=== PATIENT | male | born 1975 | race Hispanic/Latino ===

== ENCOUNTER 2017-03-15 15:39 | Emergency (ER) | payer MEDICAID ==
[~2017-03-15] VITALS: Ht 160 cm; Wt 92.5 kg
[~2017-03-15 15:39] MED LIST: CEFP500T4 PO
--- OUTSIDE RECORDS SUMMARY | 2017-03-15 15:44 | XMS REPORT ---
Author Author KEVIN MCCRARY Organization [facility] Address [address] [place] [address] Care Team Providers Care Dial Polisher Name Role Phone KEVIN MCCRARY Unavailable PROBLEMS Type Condition ICD9-CM Code [id number] Code Onset Dates Condition Status SNOMED Code Problem Type 2 diabetes mellitus without complication, without long-term current use of insulin E11.9 Active 692036760 Problem Mixed hyperlipidemia E78.2 Active 477092992 Problem Chest pain, unspecified type R07.9 Active 68198632 ALLERGIES Unknown Allergies SOCIAL HISTORY No smoking Hx information available PLAN OF CARE VITAL SIGNS MEDICATIONS Medication Instructions Dosage Frequency Start Date End Date Duration Status MetFORMIN HCl ER 500 MG Orally Once a day 1 tablet twice a day with meals 24h Oct, Active Blood Glucose Test Strip Test Strips One Touch twice daily DX E11.9 test blood sugar Nov, Active RESULTS No Results PROCEDURES No Known procedures IMMUNIZATIONS No Known Immunizations
--- OUTSIDE RECORDS SUMMARY | 2017-03-15 15:44 | XMS REPORT ---
Author Author JUSTIN GOODWIN [facility] Address [address] [place] [address] Care Team Providers Care Electrical Controls Assembler Name Role Phone JUSTIN GOODWIN Unavailable PROBLEMS Type Condition ICD9-CM Code [id number] Code Onset Dates Condition Status SNOMED Code Problem Obesity (BMI 30.0-34.9) E66.9 Active 332921747583232 Problem Chest pain, unspecified type R07.9 Active 08977633 Problem Type 2 diabetes mellitus without complication, without long-term current use of insulin E11.9 Active 430137719 Problem Mixed hyperlipidemia E78.2 Active 598306912 ALLERGIES No Information SOCIAL HISTORY Never Assessed PLAN OF CARE VITAL SIGNS MEDICATIONS Unknown Medications RESULTS No Results PROCEDURES No Known procedures IMMUNIZATIONS No Known Immunizations MEDICAL (GENERAL) HISTORY Type Description Date Medical History echo- EF 60%, mild mitral/tricuspid regurg. mild-moderate pulmonary HTN Surgical History Right Rotator Cuff Surgical History Right knee Surgery Surgical History surgery on tendons in left wrist Hospitalization History surgeries
--- OUTSIDE RECORDS SUMMARY | 2017-03-15 15:44 | XMS REPORT ---
Author Author KEVIN MCCRARY Organization [facility] Address [address] [place] [address] Care Team Providers Care Ballistics Expert Name Role Phone KEVIN MCCRARY Unavailable PROBLEMS Type Condition ICD9-CM Code [id number] Code Onset Dates Condition Status SNOMED Code Problem Obesity (BMI 30.0-34.9) E66.9 Active 591068117745795 Problem Chest pain, unspecified type R07.9 Active 28470058 Problem Type 2 diabetes mellitus without complication, without long-term current use of insulin E11.9 Active 980335038 Problem Mixed hyperlipidemia E78.2 Active 049292144 ALLERGIES No Known Allergies SOCIAL HISTORY No smoking Hx information available PLAN OF CARE VITAL SIGNS MEDICATIONS Medication Instructions Dosage Frequency Start Date End Date Duration Status MetFORMIN HCl ER 500 MG Orally Once a day 1 tablet with evening meal 24h Oct, 30 days Active RESULTS No Results PROCEDURES No Known procedures IMMUNIZATIONS No Known Immunizations
--- OUTSIDE RECORDS SUMMARY | 2017-03-15 15:44 | XMS REPORT ---
Author Author KEVIN MCCRARY Organization [employer] Address Unknown Phone Unavailable Care Team Providers Care Inseam Trimmer Name Role Phone KEVIN MCCRARY CP Unavailable Allergies, Adverse Reactions, Alerts Substance Reaction Event Type N.K.D.A. Info Not Available Non Drug Allergy Problems Problem Type Condition Code Onset Dates Condition Status Assessment Routine health maintenance Z00.00 Active Assessment Family history of diabetes mellitus Z83.3 Active Assessment Balanitis N48.1 Active Assessment Family history of cancer Z80.9 Active Assessment Genital sore R39.89 Active Medications Medication Code System Code Instructions Start Date End Date Status Dosage [facility] Hydrocortisone [facility] [address]-11 1 % Externally Twice a day Oct 28, 2015 apply thin layer to glans Nystatin [facility] [address]-06 [id number] UNIT/GM Externally Twice a day Oct 28, 2015 apply thin layer to glans Procedures Procedure Coding System Code Date [facility] NOBLL Oct 28, 2015 URINALYSIS, AUTO, W/O SCOPE CPT-4 31139 Oct 28, 2015 GLYCATED HEMOGLOBIN TEST CPT-4 22801 Oct 28, 2015 Office Visit, Est Pt., Level 3 CPT-4 25061 Oct 28, 2015 No Charge CPT-4 44814 Oct 28, 2015 VENIPUNCT, ROUTINE* CPT-4 91732 Oct 28, 2015 Vital Signs Date/Time: Oct 28, 2015 Cardiac Monitoring Heart Rate 82 bpm Weight 228.5 lbs Height 70 in BMI 32.78 Index Blood Pressure Diastolic 78 mmHg Blood Pressure Systolic 116 mmHg Results No Known Results Summary Purpose [employer] Submission
--- OUTSIDE RECORDS SUMMARY | 2017-03-15 15:44 | XMS REPORT ---
Author Author KEVIN MCCRARY Organization [employer] Address Unknown Phone Unavailable Care Team Providers Care Color Drum Worker Name Role Phone KEVIN MCCRARY CP Unavailable Allergies No Known Allergies Problems Problem Type Condition Code Onset Dates Condition Status Problem Mixed hyperlipidemia E78.2 Active Problem Chest pain, unspecified type R07.9 Active Problem Type 2 diabetes mellitus without complication, without long-term current use of insulin E11.9 Active Medications Medication Code System Code Instructions Start Date End Date Status Dosage Blood Glucose Test Strip NDC 0 Test Strips One Touch twice daily DX E11.9 2015 test blood sugar Results No Known Results Summary Purpose [employer] Submission
--- OUTSIDE RECORDS SUMMARY | 2017-03-15 15:44 | XMS REPORT ---
Author Author KEVIN MCCRARY Organization [employer] Address Unknown Phone Unavailable Care Team Providers Care Study Hall Supervisor Name Role Phone KEVIN MCCRARY CP Unavailable Allergies No Known Allergies Problems Problem Type Condition Code Onset Dates Condition Status Problem Mixed hyperlipidemia E78.2 Active Problem Chest pain, unspecified type R07.9 Active Problem Type 2 diabetes mellitus without complication, without long-term current use of insulin E11.9 Active Medications Medication Code System Code Instructions Start Date End Date Status Dosage MetFORMIN HCl ER [facility] [address]-69 500 MG Orally Once a day Nov 06, 2015 1 tablet twice a day with meals Results No Known Results Summary Purpose [employer] Submission
--- OUTSIDE RECORDS SUMMARY | 2017-03-15 15:44 | XMS REPORT ---
Author Author KEVIN MCCRARY Organization [facility] Address [address] [place] [address] Care Team Providers Care University Extension Specialist Name Role Phone KEVIN MCCRARY Unavailable PROBLEMS Type Condition ICD9-CM Code [id number] Code Onset Dates Condition Status SNOMED Code Problem Type 2 diabetes mellitus without complication, without long-term current use of insulin E11.9 Active 538198410 Problem Mixed hyperlipidemia E78.2 Active 027374304 Problem Chest pain, unspecified type R07.9 Active 00943740 ALLERGIES Unknown Allergies SOCIAL HISTORY No smoking Hx information available PLAN OF CARE VITAL SIGNS MEDICATIONS Medication Instructions Dosage Frequency Start Date End Date Duration Status MetFORMIN HCl ER 500 MG Orally Once a day 1 tablet with evening meal 24h Oct, Active RESULTS No Results PROCEDURES No Known procedures IMMUNIZATIONS No Known Immunizations
--- OUTSIDE RECORDS SUMMARY | 2017-03-15 15:45 | XMS REPORT | Continuity of Care Document ---
Author Author [facility] Organization [facility] Address Unknown Phone Unavailable Allergies Active Description Code Type Severity Reaction Onset Reported/Identified Relationship to Patient Clinical Status Yes No Known Drug Allergies [id number] Drug Allergy Unknown N/A 04/13/2013 Medications There is no data. Problems Date Dx Coded Attending Type Code Diagnosis Diagnosed By 04/13/2013 EVANGELINA ALMAGUER DO Ot 079.99 VIRAL INFECTION NOS 04/13/2013 EVANGELINA ALMAGUER DO Ot 490 BRONCHITIS NOS 04/13/2013 EVANGELINA ALMAGUER DO Ot 786.2 COUGH 12/07/2013 JUSTIN GOODWIN DO 608.89 OTHER SPECIFIED DISORDERS OF MALE GENITAL ORGANS 12/07/2013 RONNY CARREON APRN R 608.89 OTHER SPECIFIED DISORDERS OF MALE GENITAL ORGANS 02/19/2014 RIMA COELHO Ot 603.9 02/19/2014 RIMA COELHO Ot 608.89 03/05/2014 RIMA COELHO Ot 603.9 03/05/2014 RIMA COELHO Ot 608.89 03/07/2014 RONNY CARREON APRN R 250.00 DIABETES MELLITUS WITHOUT MENTION OF COMPLICATION TYPE II OR UNSPECIFIED TYPE NOT STATED UNCONTROLLED 03/07/2014 RONNY CARREON APRN R 272.4 OTHER AND UNSPECIFIED HYPERLIPIDEMIA 03/07/2014 RONNY CARREON APRN R 608.9 UNSPECIFIED DISORDER OF MALE GENITAL ORGANS 03/07/2014 RONNY CARREON APRN R 790.29 OTHER ABNORMAL GLUCOSE 01/05/2016 RIMA COELHO Ot 603.9 HYDROCELE NOS 01/05/2016 RIMA COELHO Ot 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 01/20/2016 RIMA COELHO Ot 603.9 HYDROCELE NOS 01/20/2016 RIMA COELHO Ot 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 01/20/2016 RIMA COELHO Ot 603.9 HYDROCELE NOS 01/20/2016 TOSIN CASILLAS, RIMA Ruff Ot 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 01/21/2016 MCCRARY, KEVIN Styles AUDIO VISUAL EQUIPMENT RENTAL CLERK Ot E11.9 TYPE 2 DIABETES MELLITUS WITHOUT COMPLIC 01/21/2016 MCCRARYKEVIN eD R AUDIO VISUAL EQUIPMENT RENTAL CLERK Ot E78.2 MIXED HYPERLIPIDEMIA 01/21/2016 KEVIN MCCRARY R AUDIO VISUAL EQUIPMENT RENTAL CLERK Ot R07.9 CHEST PAIN, UNSPECIFIED 01/26/2016 RIMA COELHO Ot 603.9 HYDROCELE NOS 01/26/2016 RIMA COELHO Ot 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 01/26/2016 MCCRARYKEVIN De R AUDIO VISUAL EQUIPMENT RENTAL CLERK Ot E11.9 TYPE 2 DIABETES MELLITUS WITHOUT COMPLIC 01/26/2016 KEVIN MCCRARY R AUDIO VISUAL EQUIPMENT RENTAL CLERK Ot E78.2 MIXED HYPERLIPIDEMIA 01/26/2016 KEVIN MCCRARY R AUDIO VISUAL EQUIPMENT RENTAL CLERK Ot R07.9 CHEST PAIN, UNSPECIFIED 02/05/2016 MCCRARY KEVIN R AUDIO VISUAL EQUIPMENT RENTAL CLERK Ot E11.9 TYPE 2 DIABETES MELLITUS WITHOUT COMPLIC 02/05/2016 MCCRARY KEVIN R AUDIO VISUAL EQUIPMENT RENTAL CLERK Ot E78.2 MIXED HYPERLIPIDEMIA 02/05/2016 KEVIN MCCRARY R AUDIO VISUAL EQUIPMENT RENTAL CLERK Ot R07.9 CHEST PAIN, UNSPECIFIED Procedures Code [place] [address] US SCROTUM ULTRASOUND 12/07/2013 Results There is no data. Encounters ACCT No. Visit Date/Time Discharge Status Pt. Type Provider Facility Loc./Unit Complaint [id number] 01/20/2016 11:10:00 01/20/2016 23:59:59 CLS Outpatient KEVIN MCCRARY APRN [facility] CARD CHEST PAIN [id number] 12/13/2013 10:05:00 12/13/2013 23:59:59 CLS Outpatient RIMA COELHO [facility] RAD FIRM NON TENDER LEFT SCROTAL MASS [id number] 04/13/2013 10:01:00 04/13/2013 13:35:00 DIS Emergency EVANGELINA ALMAGUER DO [facility] ER FLU SYMPTOMS [id number] 03/07/2014 08:59:00 03/07/2014 23:59:59 CLS Outpatient RONNY CARREON APRN [id number] 12/07/2013 13:55:00 12/07/2013 23:59:59 CLS Outpatient JUSTIN GOODWIN DO
--- OUTSIDE RECORDS SUMMARY | 2017-03-15 15:45 | XMS REPORT ---
Author Author KEVIN MCCRARY Organization [facility] Address [address] [place] [address] Care Team Providers Care Home Health Care Physician Name Role Phone KEVIN MCCRARY Unavailable PROBLEMS Type Condition ICD9-CM Code [id number] Code Onset Dates Condition Status SNOMED Code Problem Type 2 diabetes mellitus without complication, without long-term current use of insulin E11.9 Active 699855362 Problem Mixed hyperlipidemia E78.2 Active 964187021 Problem Chest pain, unspecified type R07.9 Active 48495452 ALLERGIES Unknown Allergies SOCIAL HISTORY No smoking Hx information available PLAN OF CARE VITAL SIGNS MEDICATIONS Unknown Medications RESULTS No Results PROCEDURES No Known procedures IMMUNIZATIONS No Known Immunizations
--- OUTSIDE RECORDS SUMMARY | 2017-03-15 15:45 | XMS REPORT ---
Author Author KEVIN MCCRARY Organization [employer] Address Unknown Phone Unavailable Care Team Providers Care Phlebotomy Services Representative Name Role Phone KEVIN MCCRARY CP Unavailable Allergies, Adverse Reactions, Alerts Substance Reaction Event Type N.K.D.A. Info Not Available Non Drug Allergy Problems Problem Type Condition Code Onset Dates Condition Status Problem Mixed hyperlipidemia E78.2 Active Problem Chest pain, unspecified type R07.9 Active Problem Type 2 diabetes mellitus without complication, without long-term current use of insulin E11.9 Active Assessment Chest pain, unspecified type R07.9 Active Assessment Type 2 diabetes mellitus without complication, without long-term current use of insulin E11.9 Active Assessment Mixed hyperlipidemia E78.2 Active Medications Medication Code System Code Instructions Start Date End Date Status Dosage Blood Glucose Test Strip NDC 0 Test Strips Contour Next or whatever covered by insurance twice daily DX E11.9 2015 test blood sugar Fenofibrate [facility] [address]-35 54 MG Orally Once a day Nov 06, 2015 1 [place] [address]-83 500 MG Orally 2 times a day Nov 06, 2015 1 tablet twice a day with meals Blood Glucose Monitor System NDC 0 1 glucometer Contour Next glucometer or whateveer covered by insurance 2 times a day DX- E11.9 2015 test blood sugar Procedures Procedure Coding System Code Date Office Visit, Est Pt., Level 3 CPT-4 09044 Dec 23, 2015 ELECTROCARDIOGRAM, TRACING CPT-4 47614 Dec 23, 2015 Vital Signs Date/Time: Dec 23, 2015 Cardiac Monitoring Heart Rate 80 bpm Weight 221.1 lbs Height 70 in BMI 31.72 Index Blood Pressure Diastolic 82 mmHg Blood Pressure Systolic 123 mmHg Results Name Result Date Reference Range Unit Abnormality Flag EKG, TRACING (IN-HOUSE) Summary Purpose [employer] Submission
--- OUTSIDE RECORDS SUMMARY | 2017-03-15 15:45 | XMS REPORT ---
Author Author KEVIN MCCRARY Organization [employer] Address Unknown Phone Unavailable Care Team Providers Care Global Marketing Operations Manager Name Role Phone KEVIN MCCRARY CP Unavailable Allergies No Known Allergies Problems No Known Problems Medications No Known Medications Results No Known Results Summary Purpose [employer] Submission
--- OUTSIDE RECORDS SUMMARY | 2017-03-15 15:45 | XMS REPORT ---
Author Author KEVIN MCCRARY Organization [facility] Address [address] [place] [address] Care Team Providers Care Ingredient Scaler Name Role Phone MCCRARYKEVIN De Unavailable PROBLEMS Type Condition ICD9-CM Code ERJ59-AO Code Onset Dates Condition Status SNOMED Code Problem Obesity (BMI 30.0-34.9) E66.9 Active 587725484139630 Problem Chest pain, unspecified type R07.9 Active 17836698 Problem Type 2 diabetes mellitus without complication, without long-term current use of insulin E11.9 Active 817896848 Problem Mixed hyperlipidemia E78.2 Active 695387527 ALLERGIES No Known Allergies SOCIAL HISTORY Never Assessed PLAN OF CARE Activity Details Follow Up 3 Months, prn Reason:CHM VITAL SIGNS Height 70 in 2016-04-20 Weight 230 lbs 2016-04-20 Temperature 98.9 degrees Fahrenheit 2016-04-20 Heart Rate 80 bpm 2016-04-20 Respiratory Rate 20 2016-04-20 BMI 33.00 kg/m2 2016-04-20 Blood pressure systolic 132 mmHg 2016-04-20 Blood pressure diastolic 82 mmHg 2016-04-20 MEDICATIONS Medication Instructions Dosage Frequency Start Date End Date Duration Status MetFORMIN HCl ER 500 MG Orally Once a day 1 tablet with evening meal 24h Oct, 90 days Active Blood Glucose Test Strip Test Strips One Touch twice daily DX E11.9 test blood sugar Nov, Active RESULTS Name Result Date Reference Range A1C (IN HOUSE) 2016-04-20 A1C IN HOUSE 6.4 4.3 - 5.6 % Previous A1c 7.9 Lot [id number] Exp date 02/05 PROCEDURES Procedure Date Ordered Result Body Site GLYCATED HEMOGLOBIN TEST Apr 20, 2016 IMMUNIZATIONS No Known Immunizations MEDICAL (GENERAL) HISTORY Type Description Date Medical History echo- EF 60%, mild mitral/tricuspid regurg. mild-moderate pulmonary HTN Surgical History Right Rotator Cuff Surgical History Right knee Surgery Surgical History surgery on tendons in left wrist Hospitalization History surgeries
[2017-03-15] MEDS ORDERED: OSLT75C PO (17:04)
--- NOTE | 2017-03-15 17:05 | ED Cough/URI ---
General Chief Complaint: Cough/Cold/Flu Symptoms Stated Complaint: COUGH Nursing Triage Note: AMB TO ROOM WITH CHILDREN WANTS CHECKED FOR FLU. SEVERAL OF HIS CHILDREN WAS SEEN IN ED THIS AM DX WITH FLU. HE HAS NO SYMPTOMS Source: patient Exam Limitations: no limitations History of Present Illness Time seen by provider: 16:45 Initial Comments 41 yo male patient presents to the ED with wanting to be tested for the flu. 2 patient's sons were tested positive for influenza B earlier today in the emergency department. Patient denies any current symptoms at this time. He is being seen with one son and daughter. and 4 younger children were seen earlier today in the emergency department. Patient did not receive the influenza vaccine this year. Allergies and Home Medications Allergies Coded Allergies: No Known Drug Allergies (Unverified , 04/13/13) Home Medications Cefprozil 500 Mg Tablet, 1 EACH PO BID, #20 Prescribed by: EVANGELINA ALMAGUER on 04/13/13 1201 Oseltamivir Phosphate 75 Mg Cap, 75 MG PO BID, #10 Ref 0 Prescribed by: UZMA STRONG on 03/15/17 1704 Constitutional: see HPI, No chills, No fever, No malaise EENTM: see HPI, nose congestion, No ear discharge, No ear pain, No hoarseness, No mouth pain, No nose pain, No throat pain, No throat swelling Respiratory: No cough, No dyspnea on exertion, No phlegm, No short of breath, No stridor, No wheezing Cardiovascular: no symptoms reported Gastrointestinal: no symptoms reported Genitourinary: no symptoms reported Musculoskeletal: no symptoms reported Skin: no symptoms reported Psychiatric/Neurological: No Symptoms Reported All Other Systems Reviewed Negative Unless Noted: Yes (Negative excepted noted.) Past Urjrehr-Jiusqa-Fnlaux Hx Patient Social History Recent Foreign Travel: No Contact w/Someone Who Travel: No Recent Infectious Disease Expo: No Surgeries History of Surgeries: Yes (RIGHT ROTATOR CUFF) Respiratory History of Respiratory Disorde: No Cardiovascular History of Cardiac Disorders: No Neurological History of Neurological Disord: No Gastrointestinal History of Gastrointestinal Di: No Musculoskeletal History of Musculoskeletal Dis: No Endocrine History of Endocrine Disorders: No Cancer History of Cancer: No Psychosocial History of Psychiatric Problem: No Integumentary History of Skin or Integumenta: No Blood Transfusions History of Blood Disorders: No Reviewed Nursing Assessment Reviewed/Agree w Nursing PMH: Yes Family Medical History Significant Family History: No Pertinent Family Hx Physical Exam Vital Signs Vital Sign - Last 12Hours 03/15/17 16:12 Temp 97.6 Pulse 87 Resp 18 B/P (MAP) 132/92 (105) Pulse Ox 97 O2 Delivery Room Air Capillary Refill : Less Than 3 Seconds General Appearance: WD/WN, no apparent distress HEENT: PERRL/EOMI, TMs normal, pharyngeal erythema, No tonsillar exudate, other (negative for nasal congestion. Mild nasal mucosal swelling noted.) Neck: non-tender, supple, normal inspection Respiratory: lungs clear, normal breath sounds, no respiratory distress, no accessory muscle use Cardiovascular: normal peripheral pulses, regular rate, rhythm, no murmur Extremities: normal inspection, normal capillary refill Neurologic/Psychiatric: alert, normal mood/affect, oriented x 3 Skin: normal color, warm/dry Progress/Results/Core Measures Suspected Sepsis Recent Fever Within 48 Hours: No Infection Criteria Present: None New/Unexplained Altered Menta: No Sepsis Screen: No Definite Risk Sepsis Diagnosis: SIRS Temperature:97.6 Pulse: 87 Respiratory Rate: 18 Blood Pressure 132 /92 Mean: 105 Results/Orders Vital Signs/I&O Vital Sign - Last 12Hours 03/15/17 03/15/17 16:12 17:10 Temp 97.6 97.6 Pulse 87 87 Resp 18 18 B/P (MAP) 132/92 (105) Pulse Ox 97 97 O2 Delivery Room Air Capillary Refill : Less Than 3 Seconds Blood Pressure Mean: 105 Departure Communication (Admissions) Progress Notes Patient seen and evaluated. Patient is noted to have mild pharyngeal erythema and mild nasal mucosal swelling. As patient is to children tested positive for influenza B earlier today, patient was given a prescription for Tamiflu. Impression Impression: Primary Impression: Influenza Disposition: 01 HOME, SELF-CARE Condition: Improved Departure-Patient Inst. Decision time for Depature: 17:03 Referrals: JUSTIN GOODWIN DO (PCP) Primary Care Physician KEVIN MCCRARY APRN (Family) Primary Care Physician Patient Instructions: Flu, Adult (DC) Add. Discharge Instructions: All discharge instructions reviewed with patient and/or family. Voiced understanding. Medications as instructed. Tylenol extra strength [id number] as directed for pain or fever. Ibuprofen 800 mg by mouth every 8 hours as needed for pain or fever. Drink plenty of fluids. Cool humidifier. [id number] saline nasal spray, Afrin nasal spray, antihistamines, throat lozenges as directed by the ict business analyst's for symptomatic relief. Follow-up with your family practitioner for recheck if no improvement in symptoms. Return to the emergency department for worsened symptoms or any other concerns. Scripts Oseltamivir Phosphate (Tamiflu) 75 Mg Cap 75 MG PO BID, #10 CAP 0 Refills Prov: UZMA STRONG 03/15/17 UZMA STRONG Mar 15, 2017 17:05
[2017-03-15 17:10] VITALS: BP 132/92
== END 2017-03-15 17:13 | disposition home or self-care (01) ==
LOC: EDUNIT# 15:39 → ER 15:40
DX: J11.1 Influenza due to unidentified influenza virus with other respiratory manifestations (principal)
CPT/HCPCS: 99282

== ENCOUNTER 2018-03-13 09:00 | Emergency (ER) | payer MEDICAID ==
[~2018-03-13] VITALS: Ht 167.6 cm; Wt 90.7 kg
[~2018-03-13 09:00] MED LIST changes: +OSLT75C PO
--- OUTSIDE RECORDS SUMMARY | 2018-03-13 09:05 | XMS REPORT | Clinical Summary ---
Author Author [facility] Organization [facility] Address Unknown Phone Unavailable Care Team Providers Care Financial Sales Manager Name Role Phone PCP Unavailable Allergies Not on File Current Medications Not on file Active Problems Not on file Social History Tobacco Use Types Packs/Day Years Used Date Never Assessed Sex Assigned at Date Recorded Not on file Last Filed Vital Signs Not on file Plan of Treatment Not on file Results Not on filefrom Last 3 Months
--- OUTSIDE RECORDS SUMMARY | 2018-03-13 09:05 | XMS REPORT ---
Author Author KEVIN MCCRARY Organization [facility] Address [address] [place] [address] Care Team Providers Care Court Officer Name Role Phone KEVIN MCCRARY Unavailable PROBLEMS Type Condition ICD9-CM Code [id number] Code Onset Dates Condition Status SNOMED Code Problem Other obesity due to excess calories E66.09 Active 611472575 Problem Body mass index (BMI) of 32.0-32.9 in adult Z68.32 Active 158137971 Problem Mixed hyperlipidemia E78.2 Active 481814260 Problem Type 2 diabetes mellitus without complication, without long-term current use of insulin E11.9 Active 360236952 ALLERGIES No Known Allergies ENCOUNTERS Encounter Location Date Diagnosis [place] [id number] [place] [address] 90661- 8910 Oct, [facility] [id number] [place] [address] 24513- 7417 Oct, Type 2 diabetes mellitus without complication, without long- term current use of insulin E11.9 ; Mixed hyperlipidemia E78.2 ; Body mass index (BMI) of 32.0-32.9 in adult Z68.32 and Mass of soft tissue M79.9 [place] [id number] [place] [address] 12978- 5897 Sep, [place] [address] [place] [address] 48198- 7773 Jun, Type 2 diabetes mellitus without complication, without long- term current use of insulin E11.9 ; Mixed hyperlipidemia E78.2 ; Other obesity due to excess calories E66.09 and Body mass index (BMI) of 32.0-32.9 in adult Z68.32 [place] [id number] [place] [address] 84253- 3249 May, [place] [address] [address]- 6191 Apr, [facility] [id number] [place] [address] 255928- 3650 Dec, [facility] [address] [address]- 2923 Nov, [facility] [id number] [place] [address] 26645- 5062 Nov, Mixed hyperlipidemia E78.2 [facility] [address] [place] [address] 324160- 6791 Oct, Type 2 diabetes mellitus without complication, without long- term current use of insulin E11.9 ; Mixed hyperlipidemia E78.2 and Obesity (BMI 30.0-34.9) E66.9 [facility] [id number] [place] [address] 42685- 3846 Sep, [facility] [id number] [address]- 0872 May, [facility] [id number] [place] [address] 51953- 9480 Mar, Type 2 diabetes mellitus without complication, without long- term current use of insulin E11.9 and Mixed hyperlipidemia E78.2 [facility] [address] [address]- 8843 Mar, [facility] [address] [address]- 8861 Feb, [facility] [address] [address]- 5201 Feb, [facility] [address] 9186 18 Dec, 2015 [facility] [address] 9466 Dec, [facility] [id number] [place] [address] 17615- 5581 Dec, Type 2 diabetes mellitus without complication, without long- term current use of insulin E11.9 ; Mixed hyperlipidemia E78.2 and Chest pain, unspecified type R07.9 [facility] [id number] [place] [address] 14566- 3134 Nov, [facility] [id number] [place] [address] 72201- 8580 Nov, [facility] [id number] [place] [address] 37989- 6262 Oct, [facility] [address] 67643- 9627 Oct, [facility] [id number] [place] [address] 00176- 5142 Oct, Balanitis N48.1 ; Routine health maintenance Z00.00 ; Family history of diabetes mellitus Z83.3 ; Family history of cancer Z80.9 and Genital sore R39.89 [facility] [id number] [place] [address] 74308- 1438 Jun, [facility] [id number] [place] [address] 52918- 2800 Jun, [facility] [id number] [place] [address] 32168- 3821 Feb, [facility] [id number] [place] [address] 03582- 5259 Feb, [facility] [id number] [place] [address] 62341- 6715 Feb, [facility] [id number] [place] [address] 99987- 0196 Feb, [facility] [id number] [place] [address] 83427- 1521 Jan, [facility] [id number] [place] [address] 88759- 4786 Jan, [facility] [address] [facility] [id number] [address]- 1221 Nov, [facility] [address] [facility] [id number] [address]- 0166 Nov, [facility] [address] [facility] [id number] 0870 Nov, [facility] [address] [facility] [id number]6 Nov, IMMUNIZATIONS No Known Immunizations SOCIAL HISTORY Never Assessed REASON FOR VISIT Diabetes. A1C., Pt c/o lumps in his chest area that he would like checked-awoods PLAN OF CARE Activity Details Follow Up 3 Months, prn Reason:CHM/DM VITAL SIGNS Height 70 in 2017-11-08 Weight 225.1 lbs 2017-11-08 Temperature 98.3 degrees Fahrenheit 2017-11-08 Heart Rate 62 bpm 2017-11-08 Respiratory Rate 18 2017-11-08 BMI 32.29 kg/m2 2017-11-08 Blood pressure systolic 124 mmHg 2017-11-08 Blood pressure diastolic 76 mmHg 2017-11-08 MEDICATIONS Medication Instructions Dosage Frequency Start Date End Date Duration Status Atorvastatin Calcium 10 mg Orally Once a day 1 tablet 24h Oct, 90 days Active Blood Glucose Test Strip Test Strips One Touch twice daily DX E11.9 test blood sugar Nov, Active ObjectWayTouch Ultra Test 1 subcutaneously 2 times a day USE ONE STRIP TO CHECK GLUCOSE TWICE DAILY 12h 12 months Active Lisinopril 5 mg Orally Once a day 1 tablet 24h 90 days Active MetFORMIN HCl ER 500 mg Orally Once a day 1 tablet with evening meal 24h 90 days Active RESULTS No Results PROCEDURES Procedure Date Ordered Result Body Site GLYCATED HEMOGLOBIN TEST Nov 08, 2017 MICROALBUMIN, SEMIQUANT Nov 08, 2017 VENIPUNCT, ROUTINE* Nov 08, 2017 LAB NOT BILLED BY [facility] Nov 08, 2017 INSTRUCTIONS MEDICATIONS ADMINISTERED No Known Medications MEDICAL (GENERAL) HISTORY Type Description Date Medical History echo- EF 60%, mild mitral/tricuspid regurg. mild-moderate pulmonary HTN Surgical History Right Rotator Cuff Surgical History Right knee Surgery Surgical History surgery on tendons in left wrist Hospitalization History surgeries
--- OUTSIDE RECORDS SUMMARY | 2018-03-13 09:06 | XMS REPORT ---
Author Author MCCRARYKEVIN De Organization [facility] Address [address] [place] [address] Care Team Providers Care Game Technician Name Role Phone KEVIN MCCRARY Unavailable PROBLEMS Type Condition ICD9-CM Code JVV12-II Code Onset Dates Condition Status SNOMED Code Problem Other obesity due to excess calories E66.09 Active 825115831 Problem Body mass index (BMI) of 32.0-32.9 in adult Z68.32 Active 825519914 Problem Mixed hyperlipidemia E78.2 Active 355470473 Problem Obesity (BMI 30.0-34.9) E66.9 Active 412644752556918 Problem Type 2 diabetes mellitus without complication, without long-term current use of insulin E11.9 Active 349692167 ALLERGIES No Information ENCOUNTERS Encounter Location Date Diagnosis [place] [id number] [place] [address] 02229- 1213 Jun, Type 2 diabetes mellitus without complication, without long- term current use of insulin E11.9 ; Mixed hyperlipidemia E78.2 ; Other obesity due to excess calories E66.09 and Body mass index (BMI) of 32.0-32.9 in adult Z68.32 [place] [address] [place] [address] 92381- 2853 May, [facility] [id number] [place] [address] 07179- 2882 Apr, [facility] [id number] [place] [address] 48978- 9528 Dec, [facility] [id number] [place] [address] 04331- 9441 Nov, [place] [id number] [place] [address] 23307- 9718 Nov, Mixed hyperlipidemia E78.2 [facility] [address], [place] [address]- 5781 Oct, Type 2 diabetes mellitus without complication, without long- term current use of insulin E11.9 ; Mixed hyperlipidemia E78.2 and Obesity (BMI 30.0-34.9) E66.9 [facility] [address], [place] [address]- 0736 Sep, [facility] [id number] [place] [address] 86770- 2929 May, [facility] [id number] [place] [address] 75838- 0197 Mar, Type 2 diabetes mellitus without complication, without long- term current use of insulin E11.9 and Mixed hyperlipidemia E78.2 [facility] [address], [place] [address]- 3054 Mar, [facility] [id number] [place] [address] 99036- 1127 Feb, [facility] [address], [place] [address]- 0348 Feb, [facility] [id number] [place] [address] 26068- 0643 Dec, [facility] [address] [address]- 2234 Dec, [facility] [id number] [place] [address] 15531- 7940 Dec, Type 2 diabetes mellitus without complication, without long- term current use of insulin E11.9 ; Mixed hyperlipidemia E78.2 and Chest pain, unspecified type R07.9 [facility] [address] 8093 Nov, [facility] [address], [place] [address]- 7594 Nov, [facility] [id number] [address]- 5103 Oct, [facility] [address] [place] [address] 91484- 4772 Oct, [facility] [address], [place] [address]- 1056 Oct, Balanitis N48.1 ; Routine health maintenance Z00.00 ; Family history of diabetes mellitus Z83.3 ; Family history of cancer Z80.9 and Genital sore R39.89 [facility] [address] [facility] [id number] [address]- 5753 Jun, [facility] [id number] [place] [address] 64423- 6901 Jun, [facility] [address], [place] [address]- 5935 Feb, [facility] [id number] [place] [address] 57401- 5271 Feb, [facility] [id number] [place] [address]- 5572 Feb, [facility] [address] [place] [address] 94382- 9858 Feb, [facility] [address], [place] [address]- 8994 Jan, [facility] [address], [place] [address]- 6451 Jan, [facility] [address], [place] [address]- 4581 Nov, [facility] [id number] [address]- 3015 Nov, [facility] [address] 8329 Nov, [facility] [address], [place] [address]- 6103 Nov, IMMUNIZATIONS No Known Immunizations SOCIAL HISTORY Never Assessed REASON FOR VISIT 1 yr f/u DM Ed PLAN OF CARE VITAL SIGNS MEDICATIONS No Known Medications RESULTS No Results PROCEDURES No Known procedures INSTRUCTIONS MEDICATIONS ADMINISTERED No Known Medications MEDICAL (GENERAL) HISTORY Type Description Date Medical History echo- EF 60%, mild mitral/tricuspid regurg. mild-moderate pulmonary HTN Surgical History Right Rotator Cuff Surgical History Right knee Surgery Surgical History surgery on tendons in left wrist Hospitalization History surgeries
--- OUTSIDE RECORDS SUMMARY | 2018-03-13 09:06 | XMS REPORT ---
Author Author MCCRARYSAMSONKEVIN Organization [facility] Address [address] [place] [address] Care Team Providers Care Graves Registration Specialist Name Role Phone KEVIN MCCRARY Unavailable PROBLEMS Type Condition ICD9-CM Code XJE09-SB Code Onset Dates Condition Status SNOMED Code Problem Other obesity due to excess calories E66.09 Active 744376408 Problem Body mass index (BMI) of 32.0-32.9 in adult Z68.32 Active 682793238 Problem Mixed hyperlipidemia E78.2 Active 365905666 Problem Obesity (BMI 30.0-34.9) E66.9 Active 035543458001707 Problem Type 2 diabetes mellitus without complication, without long-term current use of insulin E11.9 Active 756726540 ALLERGIES No Information ENCOUNTERS Encounter Location Date Diagnosis [place] [id number] [place] [address] 06814- 6017 Jun, Type 2 diabetes mellitus without complication, without long- term current use of insulin E11.9 ; Mixed hyperlipidemia E78.2 ; Other obesity due to excess calories E66.09 and Body mass index (BMI) of 32.0-32.9 in adult Z68.32 [place] [address] [place] [address] 16828- 4327 May, [facility] [id number] [place] [address] 29996- 1900 Apr, [facility] [id number] [place] [address] 14174- 4654 Dec, [facility] [id number] [place] [address] 59165- 9004 Nov, [place] [id number] [place] [address] 42159- 5889 Nov, Mixed hyperlipidemia E78.2 [facility] [address] [address]- 6663 Oct, Type 2 diabetes mellitus without complication, without long- term current use of insulin E11.9 ; Mixed hyperlipidemia E78.2 and Obesity (BMI 30.0-34.9) E66.9 [facility] [address] [address]- 1610 Sep, [facility] [id number] [place] [address] 87071- 9539 May, [facility] [id number] [place] [address] 34471- 9488 Mar, Type 2 diabetes mellitus without complication, without long- term current use of insulin E11.9 and Mixed hyperlipidemia E78.2 [facility] [address] [address]- 6672 Mar, [facility] [id number] [place] [address] 77523- 1127 Feb, [facility] [address] [address]- 6313 Feb, [facility] [id number] [place] [address] 63615- 6073 Dec, [facility] [address] [address]- 1723 Dec, [facility] [id number] [place] [address] 38118- 7990 Dec, Type 2 diabetes mellitus without complication, without long- term current use of insulin E11.9 ; Mixed hyperlipidemia E78.2 and Chest pain, unspecified type R07.9 [facility] [address]- 7567 Nov, [facility] [address] [address]- 8881 Nov, [facility] [id number] [address]- 9078 Oct, [facility] [address] [place] [address] 99106- 6054 Oct, [facility] [address] [address]- 5415 Oct, Balanitis N48.1 ; Routine health maintenance Z00.00 ; Family history of diabetes mellitus Z83.3 ; Family history of cancer Z80.9 and Genital sore R39.89 [facility] [address] [facility] [id number] [address]- 5954 Jun, [facility] [id number] [place] [address] 19264- 6263 Jun, [facility] [address] [address]- 7107 Feb, [facility] [id number] [place] [address] 61360- 4407 Feb, [facility] [address] [place] [address]- 6782 Feb, [facility] [address] [place] [address] 62830- 3071 Feb, [facility] [address] [address]- 1486 Jan, [facility] [address] [address]- 9407 Jan, [facility] [address] [address]- 9451 Nov, [facility] [id number] [address]- 0895 Nov, [facility] [address] 9707 Nov, [facility] [address] [address]- 3381 Nov, IMMUNIZATIONS No Known Immunizations SOCIAL HISTORY Never Assessed REASON FOR VISIT Refill request-UNABLE TO CONTACT PLAN OF CARE VITAL SIGNS MEDICATIONS No [...]
--- OUTSIDE RECORDS SUMMARY | 2018-03-13 09:06 | XMS REPORT ---
Author Author KEVIN MCCRARY Organization [facility] Address [address] [place] [address] Care Team Providers Care Flatwork Finisher Name Role Phone KEVIN MCCRARY Unavailable PROBLEMS Type Condition ICD9-CM Code NQV65-PX Code Onset Dates Condition Status SNOMED Code Problem Other obesity due to excess calories E66.09 Active 739625644 Problem Body mass index (BMI) of 32.0-32.9 in adult Z68.32 Active 467241163 Problem Mixed hyperlipidemia E78.2 Active 371320300 Problem Type 2 diabetes mellitus without complication, without long-term current use of insulin E11.9 Active 150818157 ALLERGIES No Information ENCOUNTERS Encounter Location Date Diagnosis [place] [id number] [place] [address] 96878- 2275 Oct, [place] [id number] [place] [address] 48852- 0024 Oct, Type 2 diabetes mellitus without complication, without long- term current use of insulin E11.9 ; Mixed hyperlipidemia E78.2 ; Body mass index (BMI) of 32.0-32.9 in adult Z68.32 and Mass of soft tissue M79.9 [place] [id number] [place] [address] 24422- 6314 Sep, [place] [address] [place] [address] 62254- 2290 Jun, Type 2 diabetes mellitus without complication, without long- term current use of insulin E11.9 ; Mixed hyperlipidemia E78.2 ; Other obesity due to excess calories E66.09 and Body mass index (BMI) of 32.0-32.9 in adult Z68.32 [place] [id number] [place] [address] 87484- 5098 May, [place] [address] [address]- 5820 Apr, [facility] [id number] [place] [address] 225253- 0382 Dec, [facility] [address] [address]- 7046 Nov, [facility] [id number] [place] [address] 94535- 8463 Nov, Mixed hyperlipidemia E78.2 [facility] [id number] [place] [address] 784355- 1049 Oct, Type 2 diabetes mellitus without complication, without long- term current use of insulin E11.9 ; Mixed hyperlipidemia E78.2 and Obesity (BMI 30.0-34.9) E66.9 [facility] [address] [address]- 3943 Sep, [facility] [address] [address]- 8192 May, [facility] [address] [place] [address] 68083- 9003 Mar, Type 2 diabetes mellitus without complication, without long- term current use of insulin E11.9 and Mixed hyperlipidemia E78.2 [facility] [address] [address]- 4829 Mar, [facility] [address] [address]- 1618 Feb, [facility] [address] [place] [address]- 5793 Feb, [facility] [address]- 5800 Dec, [facility] [address]- 6423 Dec, [facility] [id number] [place] [address] 06890- 6431 Dec, Type 2 diabetes mellitus without complication, without long- term current use of insulin E11.9 ; Mixed hyperlipidemia E78.2 and Chest pain, unspecified type R07.9 [facility] [id number] [place] [address] 16642- 3334 Nov, [facility] [address] 54906- 4297 Nov, [facility] [id number] [place] [address] 44144- 5694 Oct, [facility] [address] 03940- 9605 Oct, [facility] [id number] [place] [address] 21415- 4204 Oct, Balanitis N48.1 ; Routine health maintenance Z00.00 ; Family history of diabetes mellitus Z83.3 ; Family history of cancer Z80.9 and Genital sore R39.89 [facility] [id number] [place] [address] 53053- 2985 Jun, [facility] [id number] [place] [address] 08074- 1683 Jun, [facility] [id number] [place] [address] 65835- 2036 Feb, [facility] [id number] [place] [address] 09717- 8880 Feb, [facility] [id number] [place] [address] 45670- 8565 Feb, [facility] [id number] [place] [address] 44100- 8124 Feb, [facility] [id number] [place] [address] 82467- 3785 Jan, [facility] ([facility] [address] [address] Jan, [facility] ([facility] [address] [facility] [id number] [address] Nov, [facility] ([facility] [address] [facility] [id number] [place] [address] Nov, [facility] ([facility] [address] [facility] [id number] [place] [address] Nov, [facility] ([facility] [address] [facility] [id number] [place] [address] Nov, IMMUNIZATIONS No Known Immunizations SOCIAL HISTORY Never Assessed REASON FOR VISIT requests appt PLAN OF CARE VITAL SIGNS MEDICATIONS Unknown [...]
--- OUTSIDE RECORDS SUMMARY | 2018-03-13 09:06 | XMS REPORT ---
Author Author MCCRARYSAMSONKEVIN Organization [facility] Address [address] [place] [address] Care Team Providers Care Engraver Optical Frames Name Role Phone KEVIN MCCRARY Unavailable PROBLEMS Type Condition ICD9-CM Code QYM93-MV Code Onset Dates Condition Status SNOMED Code Problem Other obesity due to excess calories E66.09 Active 133414486 Problem Body mass index (BMI) of 32.0-32.9 in adult Z68.32 Active 039247501 Problem Mixed hyperlipidemia E78.2 Active 952532401 Problem Obesity (BMI 30.0-34.9) E66.9 Active 839256698256824 Problem Type 2 diabetes mellitus without complication, without long-term current use of insulin E11.9 Active 372716022 ALLERGIES No Known Allergies ENCOUNTERS Encounter Location Date Diagnosis [place] [id number] [address] Oct, [facility] [address] [address]- [address] Sep, [facility] [address] [address]- 69[address] Jun, Type 2 diabetes mellitus without complication, without long- term current use of insulin E11.9 ; Mixed hyperlipidemia E78.2 ; Other obesity due to excess calories E66.09 and Body mass index (BMI) of 32.0-32.9 in adult Z68.32 [facility] [address] [address]- 8824 May, [facility] [address] [address]- 8466 Apr, [facility] [address] [address]- 1307 Dec, [facility] [address], [place] [address] Nov, [facility] [address] [place] [address] 61967- 6476 Nov, Mixed hyperlipidemia E78.2 [facility] [address], [place] [address] Oct, Type 2 diabetes mellitus without complication, without long- term current use of insulin E11.9 ; Mixed hyperlipidemia E78.2 and Obesity (BMI 30.0-34.9) E66.9 [facility] [address] [place] [address] 2095 Sep, [facility] [address] [place] [id number] [place] [address] 65025- 7010 May, [facility] [address] [place] [id number] [place] [address] 24041- 2580 Mar, Type 2 diabetes mellitus without complication, without long- term current use of insulin E11.9 and Mixed hyperlipidemia E78.2 [facility] [address], [place] [address]- 3[address] Mar, [facility] [address] [place] [address] 59068- 6881 Feb, [facility] [address], [place] [address]- 0301 Feb, [facility] [address], [place] [address]- 6971 Dec, [facility] [address] [place] [address]- 1066 Dec, [facility] [address] [place] [address] 93864- 9227 Dec, Type 2 diabetes mellitus without complication, without long- term current use of insulin E11.9 ; Mixed hyperlipidemia E78.2 and Chest pain, unspecified type R07.9 [facility] [address] [place] [id number] [address] 93[address] 15 Nov, 2015 [facility] [address] [place] [address] 58266- 2655 06 Nov, 2015 [facility] [address], [place] [address]- 7657 Oct, [facility] [address] [place] [address] 92626- 1088 Oct, [facility] [address] [place] [id number] [place] [address] 21963- 0436 Oct, Balanitis N48.1 ; Routine health maintenance Z00.00 ; Family history of diabetes mellitus Z83.3 ; Family history of cancer Z80.9 and Genital sore R39.89 [facility] [address] [address] Jun, [facility] [address] [place] [address] 38675- 5319 Jun, [facility] [address], [place] [address]- 9772 Feb, [facility] [address] 2886 Feb, [facility] [address], [place] [address]- 4392 Feb, [facility] [address] 4579 Feb, [facility] [address] 3116 Jan, [facility] [address] 5[address] Jan, [facility] [address] [place] [id number], [place] [address]- 2361 30 Nov, 2013 [facility] [address], [place] [address]- 6665 Nov, [facility] [address] [facility] [id number] [place] [address]- 3281 Nov, [facility] [address] [facility] [id number] [place] [address]- 0746 Nov, IMMUNIZATIONS No Known Immunizations SOCIAL HISTORY Never Assessed REASON FOR VISIT Diabetes. HU Mark PLAN OF CARE Activity Details Follow Up 3 Months Reason:f/u DM VITAL SIGNS Height 70 in 2017-07-11 Weight 226.2 lbs 2017-07-11 Temperature 98.1 degrees Fahrenheit 2017-07-11 Heart Rate 73 bpm 2017-07-11 Respiratory Rate 18 2017-07-11 BMI 32.45 kg/m2 2017-07-11 Blood pressure systolic 126 mmHg 2017-07-11 Blood pressure diastolic 80 mmHg 2017-07-11 MEDICATIONS Medication Instructions Dosage Frequency Start Date End Date Duration Status Lisinopril 5 mg Orally Once a day 1 tablet 24h 90 days Active Prol[employer] Software Ultra Test - USE ONE STRIP TO CHECK GLUCOSE TWICE DAILY Active Blood Glucose Test Strip Test Strips One Touch twice daily DX E11.9 test blood sugar Nov, Active MetFORMIN HCl ER 500 MG Orally Once a day 1 tablet with evening meal 24h 90 days Active RESULTS Name Result Date Reference Range A1C (IN HOUSE) A1C IN HOUSE 6.2 4.3 - 5.6 % Previous A1c 6.4 Lot [id number] Exp date 04/2019 PROCEDURES Procedure Date Ordered Result Body Site GLYCATED HEMOGLOBIN TEST July 11, 2017 INSTRUCTIONS MEDICATIONS ADMINISTERED No Known Medications MEDICAL (GENERAL) HISTORY Type Description Date Medical History echo- EF 60%, mild mitral/tricuspid regurg. mild-moderate pulmonary HTN Surgical History Right Rotator Cuff Surgical History Right knee Surgery Surgical History surgery on tendons in left wrist Hospitalization History surgeries
--- OUTSIDE RECORDS SUMMARY | 2018-03-13 09:06 | XMS REPORT ---
Author Author MCCRARY KEVIN Organization [facility] Address [address] [place] [address] Care Team Providers Care Military Source Operations Officer Name Role Phone KEVIN MCCRARY Unavailable PROBLEMS Type Condition ICD9-CM Code VNM84-UD Code Onset Dates Condition Status SNOMED Code Problem Other obesity due to excess calories E66.09 Active 696563950 Problem Body mass index (BMI) of 32.0-32.9 in adult Z68.32 Active 078790344 Problem Mixed hyperlipidemia E78.2 Active 705965713 Problem Type 2 diabetes mellitus without complication, without long-term current use of insulin E11.9 Active 777631066 ALLERGIES Substance Reaction Event Type Date Status Keflex N/V/ sweats/ abdominal cramps Drug Allergy Oct, Active ENCOUNTERS Encounter Location Date Diagnosis [place] [address] [place] [id number] [place] [address]14- 9285 Oct, [place] [address] [address]- [address] Oct, Type 2 diabetes mellitus without complication, without long- term current use of insulin E11.9 ; Mixed hyperlipidemia E78.2 ; Body mass index (BMI) of 32.0-32.9 in adult Z68.32 and Mass of soft tissue M79.9 [facility] [address] [place] [address] 04535- 9909 Sep, [place] [address] [address]- 0339 Jun, Type 2 diabetes mellitus without complication, without long- term current use of insulin E11.9 ; Mixed hyperlipidemia E78.2 ; Other obesity due to excess calories E66.09 and Body mass index (BMI) of 32.0-32.9 in adult Z68.32 [place] [address] [place] [address] May, [facility] [address], [place] [address]- 8917 Apr, [facility] [address] [address] Dec, [facility] [address] [place] [address] 830812- 6178 Nov, [facility] [address] [place] [id number] [place] [address] 14206- 1326 Nov, Mixed hyperlipidemia E78.2 [facility] [address] [place] [id number] [place] [address] 808411- 6885 Oct, Type 2 diabetes mellitus without complication, without long- term current use of insulin E11.9 ; Mixed hyperlipidemia E78.2 and Obesity (BMI 30.0-34.9) E66.9 [facility] [address], [place] [address]- 5007 Sep, [facility] [address], [place] [address]- 5162 May, [facility] [address] [place] [address] 51974- 6878 Mar, Type 2 diabetes mellitus without complication, without long- term current use of insulin E11.9 and Mixed hyperlipidemia E78.2 [facility] [address], [place] [address]- 4864 Mar, [facility] [address], [place] [address]- 5013 Feb, [facility] [address] [place] [id number] 7874 Feb, [facility] [address], [place] [address]- 8367 Dec, [facility] [address], [place] [address]- 2833 Dec, [facility] [address] [place] [id number] [place] [address] 98983- 8750 Dec, Type 2 diabetes mellitus without complication, without long- term current use of insulin E11.9 ; Mixed hyperlipidemia E78.2 and Chest pain, unspecified type R07.9 [facility] [address] [place] [id number] [place] [address] 36068- 5389 Nov, [facility] [address] 32270- 9281 Nov, [facility] [address] [place] [id number] [place] [address] 89422- 0820 Oct, [facility] [address] [place] [id number] [place] [address] 32860- 1138 Oct, [facility] [address] [place] [id number] [place] [address] 90388- 5666 Oct, Balanitis N48.1 ; Routine health maintenance Z00.00 ; Family history of diabetes mellitus Z83.3 ; Family history of cancer Z80.9 and Genital sore R39.89 [facility] [address] [place] [id number] [place] [address] 59223- 7339 Jun, [facility] [address] [place] [id number] [place] [address] 32380- 6025 Jun, [facility] [address] [place] [id number] [place] [address] 17347- 8014 Feb, [facility] [address] [place] [id number] [place] [address] 48889- 5367 Feb, [facility] [address] [place] [id number] [place] [address] 572016- 4020 Feb, [facility] [address] [place] [id number] [place] [address] 83513- 2446 Feb, [facility] [address] [place] [id number] [place] [address] 30988- 7946 Jan, [facility] [address] [facility] [id number] [address]- 8021 Jan, [facility] [address] [facility] [id number], [place] [address]- 4406 Nov, [facility] [address] [facility] [id number], [place] [address]- 7840 Nov, [facility] [address] [place] [id number] [address]- 6860 Nov, [facility] [address] [facility] [id number] [address]- 0909 Nov, IMMUNIZATIONS No Known Immunizations SOCIAL HISTORY Never Assessed REASON FOR VISIT med allergy PLAN OF CARE VITAL SIGNS MEDICATIONS Unknown [...]
--- OUTSIDE RECORDS SUMMARY | 2018-03-13 09:06 | XMS REPORT ---
Author Author MCCRARYSAMSONKEVIN Organization [facility] Address [address] [place] [address] Care Team Providers Care Education Research Analyst Name Role Phone KEVIN MCCRARY Unavailable PROBLEMS Type Condition ICD9-CM Code GZC15-GX Code Onset Dates Condition Status SNOMED Code Problem Other obesity due to excess calories E66.09 Active 346646997 Problem Body mass index (BMI) of 32.0-32.9 in adult Z68.32 Active 558102817 Problem Mixed hyperlipidemia E78.2 Active 439788604 Problem Obesity (BMI 30.0-34.9) E66.9 Active 844487370718410 Problem Type 2 diabetes mellitus without complication, without long-term current use of insulin E11.9 Active 946482521 ALLERGIES No Information ENCOUNTERS Encounter Location Date Diagnosis [place] [address] [place] [id number] [place] [address] 40934- 6306 Jun, Type 2 diabetes mellitus without complication, without long- term current use of insulin E11.9 ; Mixed hyperlipidemia E78.2 ; Other obesity due to excess calories E66.09 and Body mass index (BMI) of 32.0-32.9 in adult Z68.32 [place] [address] [place] [address] 95187- 8916 May, [facility] [address] [place] [id number] [place] [address] 46403- 8830 Apr, [facility] [address] [place] [id number] [place] [address] 53465- 8992 Dec, [facility] [address] [place] [id number] [place] [address] 65309- 8962 Nov, [place] [address] [place] [id number] [place] [address] 87513- 6682 Nov, Mixed hyperlipidemia E78.2 [facility] [address], [place] [address]- 8751 Oct, Type 2 diabetes mellitus without complication, without long- term current use of insulin E11.9 ; Mixed hyperlipidemia E78.2 and Obesity (BMI 30.0-34.9) E66.9 [facility] [address], [place] [address]- 4336 Sep, [facility] [address] [place] [id number] [place] [address] 66806- 3681 May, [facility] [address] [place] [id number] [place] [address] 09992- 6556 Mar, Type 2 diabetes mellitus without complication, without long- term current use of insulin E11.9 and Mixed hyperlipidemia E78.2 [facility] [address], [place] [address]- 2832 Mar, [facility] [address] [place] [id number] [place] [address] 28267- 7930 Feb, [facility] [address], [place] [address]- 9188 Feb, [facility] [address] [place] [id number] [place] [address] 51199- 3974 Dec, [facility] [address], [place] [address]- 0565 Dec, [facility] [address] [place] [id number] [place] [address] 79041- 3052 Dec, Type 2 diabetes mellitus without complication, without long- term current use of insulin E11.9 ; Mixed hyperlipidemia E78.2 and Chest pain, unspecified type R07.9 [facility] [address] 0417 Nov, [facility] [address], [place] [address]- 8964 Nov, [facility] [address] [place] [id number], [place] [address]- 8449 Oct, [facility] [address] [place] [address] 41159- 0924 Oct, [facility] [address], [place] [address]- 8711 Oct, Balanitis N48.1 ; Routine health maintenance Z00.00 ; Family history of diabetes mellitus Z83.3 ; Family history of cancer Z80.9 and Genital sore R39.89 [facility] [address] [facility] [id number], [place] [address]- 2796 Jun, [facility] [address] [place] [id number] [place] [address] 39947- 1891 Jun, [facility] [address], [place] [address]- 3491 Feb, [facility] [address] [place] [id number] [place] [address] 86406- 5992 Feb, [facility] [address] [place] [address]- 2253 Feb, [facility] [address] [place] [address] 02877- 2518 Feb, [facility] [address], [place] [address]- 5104 Jan, [facility] [address], [place] [address]- 0709 Jan, [facility] [address], [place] [address]- 1689 Nov, [facility] [address] [place] [id number], [place] [address]- 2385 Nov, [facility] [address] [address]- 4791 Nov, [facility] [address], [place] [address]- 8008 Nov, IMMUNIZATIONS No Known Immunizations SOCIAL HISTORY Never Assessed REASON FOR VISIT Refill request PLAN OF CARE VITAL SIGNS MEDICATIONS Medication Instructions Dosage Frequency Start Date End Date Duration Status OneTouch Ultra Test - USE ONE STRIP TO CHECK GLUCOSE TWICE DAILY 25 Active RESULTS No Results PROCEDURES No Known procedures INSTRUCTIONS MEDICATIONS ADMINISTERED No Known Medications MEDICAL (GENERAL) HISTORY Type Description Date Medical History echo- EF 60%, mild mitral/tricuspid regurg. mild-moderate pulmonary HTN Surgical History Right Rotator Cuff Surgical History Right knee Surgery Surgical History surgery on tendons in left wrist Hospitalization History surgeries
--- OUTSIDE RECORDS SUMMARY | 2018-03-13 09:06 | XMS REPORT ---
Author Author MCCRARYKEVIN De Organization [facility] Address [address] [place] [address] Care Team Providers Care Sewer Tapper Name Role Phone KEVIN MCCRARY Unavailable PROBLEMS Type Condition ICD9-CM Code SBU38-BZ Code Onset Dates Condition Status SNOMED Code Problem Other obesity due to excess calories E66.09 Active 268344631 Problem Body mass index (BMI) of 32.0-32.9 in adult Z68.32 Active 553049640 Problem Mixed hyperlipidemia E78.2 Active 381147460 Problem Obesity (BMI 30.0-34.9) E66.9 Active 621695463237484 Problem Type 2 diabetes mellitus without complication, without long-term current use of insulin E11.9 Active 126209176 ALLERGIES No Information ENCOUNTERS Encounter Location Date Diagnosis [place] [address] [place] [id number] [place] [address] 04675- 0262 Jun, Type 2 diabetes mellitus without complication, without long- term current use of insulin E11.9 ; Mixed hyperlipidemia E78.2 ; Other obesity due to excess calories E66.09 and Body mass index (BMI) of 32.0-32.9 in adult Z68.32 [place] [address] [place] [address] 11779- 9587 May, [facility] [address] [place] [id number] [place] [address] 02555- 7163 Apr, [facility] [address] [place] [id number] [place] [address] 01587- 7630 Dec, [facility] [address] [place] [id number] [place] [address] 28791- 5320 Nov, [place] [address] [place] [id number] [place] [address] 75788- 5151 Nov, Mixed hyperlipidemia E78.2 [facility] [address], [place] [address]- 5936 Oct, Type 2 diabetes mellitus without complication, without long- term current use of insulin E11.9 ; Mixed hyperlipidemia E78.2 and Obesity (BMI 30.0-34.9) E66.9 [facility] [address], [place] [address]- 6506 Sep, [facility] [address] [place] [id number] [place] [address] 02497- 6359 May, [facility] [address] [place] [id number] [place] [address] 15771- 5800 Mar, Type 2 diabetes mellitus without complication, without long- term current use of insulin E11.9 and Mixed hyperlipidemia E78.2 [facility] [address], [place] [address]- 0080 Mar, [facility] [address] [place] [id number] [place] [address] 38161- 2198 Feb, [facility] [address], [place] [address]- 3680 Feb, [facility] [address] [place] [id number] [place] [address] 86690- 6548 Dec, [facility] [address], [place] [address]- 7456 Dec, [facility] [address] [place] [id number] [place] [address] 38079- 2674 Dec, Type 2 diabetes mellitus without complication, without long- term current use of insulin E11.9 ; Mixed hyperlipidemia E78.2 and Chest pain, unspecified type R07.9 [facility] [address]- 8483 Nov, [facility] [address], [place] [address]- 5942 Nov, [facility] [address] [place] [address], [place] [address]- 0718 Oct, [facility] [address] [place] [address] 09277- 9648 Oct, [facility] [address], [place] [address]- 7766 Oct, Balanitis N48.1 ; Routine health maintenance Z00.00 ; Family history of diabetes mellitus Z83.3 ; Family history of cancer Z80.9 and Genital sore R39.89 [facility] [address] [facility] [id number], [place] [address]- 6085 Jun, [facility] [address] [place] [id number] [place] [address] 40171- 8871 Jun, [facility] [address], [place] [address]- 0120 Feb, [facility] [address] [place] [id number] [place] [address] 86415- 1541 Feb, [facility] [address] [place] [address]- 3628 Feb, [facility] [address] [place] [address] 52485- 3362 Feb, [facility] [address], [place] [address]- 8737 Jan, [facility] [address], [place] [address]- 9354 Jan, [facility] [address], [place] [address]- 4749 Nov, [facility] [address] [place] [address], [place] [address]- 0577 Nov, [facility] [address]- 5608 Nov, [facility] [address] 0495 Nov, IMMUNIZATIONS No Known Immunizations SOCIAL HISTORY Never Assessed REASON FOR VISIT med clarification PLAN OF CARE VITAL SIGNS MEDICATIONS Medication Instructions Dosage Frequency Start Date End Date Duration Status MetFORMIN HCl ER 500 mg Orally twice a day 1 tablet with evening meal 12h 30 days Active RESULTS No Results PROCEDURES No Known procedures INSTRUCTIONS MEDICATIONS ADMINISTERED No Known Medications MEDICAL (GENERAL) HISTORY Type Description Date Medical History echo- EF 60%, mild mitral/tricuspid regurg. mild-moderate pulmonary HTN Surgical History Right Rotator Cuff Surgical History Right knee Surgery Surgical History surgery on tendons in left wrist Hospitalization History surgeries
--- OUTSIDE RECORDS SUMMARY | 2018-03-13 09:07 | XMS REPORT ---
Author Author HERMANN KEVIN Organization [facility] Address [address] [place] [address] Care Team Providers Care Photocomposing Machine Operator Name Role Phone KEVIN MCCRARY Unavailable PROBLEMS Type Condition ICD9-CM Code FMZ97-PB Code Onset Dates Condition Status SNOMED Code Problem Obesity (BMI 30.0-34.9) E66.9 Active 806431850391642 Problem Chest pain, unspecified type R07.9 Active 88330560 Problem Type 2 diabetes mellitus without complication, without long-term current use of insulin E11.9 Active 106343763 Problem Mixed hyperlipidemia E78.2 Active [id number] ALLERGIES No Information ENCOUNTERS Encounter Location Date Diagnosis [place] [address] [address]- [address] Jun, [place] [address] [place] [id number] [place] [address] 46207- 4405 May, [place] [address] [place] [id number] [place] [address] 05827- 9564 Apr, [place] [address] [place] [id number] [place] [address] 53860- 9459 Dec, [place] [address] [place] [id number] [place] [address] 19889- 7932 Nov, [place] [address] [place] [id number] [place] [address] 40098- 7330 Nov, Mixed hyperlipidemia E78.2 [facility] [address] [place] [id number] [place] [address] 49569- 5408 Oct, Type 2 diabetes mellitus without complication, without long- term current use of insulin E11.9 ; Mixed hyperlipidemia E78.2 and Obesity (BMI 30.0-34.9) E66.9 [facility] [address], [place] [address] 46[address] Sep, [facility] [address] [place] [address] 05763- 0981 May, [facility] [address] [place] [id number] [place] [address] 31936- 1058 Mar, Type 2 diabetes mellitus without complication, without long- term current use of insulin E11.9 and Mixed hyperlipidemia E78.2 [facility] [address] [place] [id number] [address] 1573 Mar, [facility] [address] [place] [id number] [place] [address] 17602- 5472 Feb, [facility] [address] [place] [id number] [place] [address] 14829- 2971 Feb, [facility] [address] [place] [id number] [place] [address] 14497- 1609 Dec, [facility] [address] [place] [address] 52549- 9915 Dec, [facility] [address] [place] [address] 50962- 7836 Dec, Type 2 diabetes mellitus without complication, without long- term current use of insulin E11.9 ; Mixed hyperlipidemia E78.2 and Chest pain, unspecified type R07.9 [facility] [address], [place] [address] 0013 Nov, [facility] [address], [place] [address]- 4772 Nov, [facility] [address], [place] [address] 2705 Oct, [facility] [address], [place] [address]- 9522 Oct, [facility] [address], [place] [address] 1406 Oct, Balanitis N48.1 ; Routine health maintenance Z00.00 ; Family history of diabetes mellitus Z83.3 ; Family history of cancer Z80.9 and Genital sore R39.89 [facility] [address], [place] [address] 6215 Jun, [facility] [address], [place] [address] 4035 Jun, [facility] [address] [place] [address] 20204- 6652 Feb, [facility] [address] [place] [address] 73118- 2914 Feb, [facility] [address] [place] [id number] [place] [address] 33795- 6719 Feb, [facility] [address] [place] [id number] [place] [address] 32697- 4890 Feb, [facility] [address] [place] [id number] [place] [address] 46413- 3239 Jan, [facility] [address] [place] [id number] [place] [address] 08853- 3264 Jan, [facility] [address], [place] [address]- 6840 Nov, [facility] [address], [place] [address]- 0337 Nov, [facility] [address], [place] [address]- 5783 Nov, [facility] [address], [place] [address] 0706 Nov, IMMUNIZATIONS No Known Immunizations SOCIAL HISTORY Never Assessed REASON FOR VISIT Refill request PLAN OF CARE VITAL SIGNS MEDICATIONS Medication Instructions Dosage Frequency Start Date End Date Duration Status MetFORMIN HCl ER 500 MG Orally Once a day 1 tablet with evening meal 24h 30 Active RESULTS No Results PROCEDURES No Known procedures INSTRUCTIONS MEDICATIONS ADMINISTERED No Known Medications MEDICAL (GENERAL) HISTORY Type Description Date Medical History echo- EF 60%, mild mitral/tricuspid regurg. mild-moderate pulmonary HTN Surgical History Right Rotator Cuff Surgical History Right knee Surgery Surgical History surgery on tendons in left wrist Hospitalization History surgeries
--- OUTSIDE RECORDS SUMMARY | 2018-03-13 09:07 | XMS REPORT ---
Author Author HERMANN KEVIN Organization [facility] Address [address] [place] [address] Care Team Providers Care Self Storage Manager Name Role Phone KEVIN MCCRARY Unavailable PROBLEMS Type Condition ICD9-CM Code QCW90-OW Code Onset Dates Condition Status SNOMED Code Problem Obesity (BMI 30.0-34.9) E66.9 Active 271509504685273 Problem Chest pain, unspecified type R07.9 Active 80687912 Problem Type 2 diabetes mellitus without complication, without long-term current use of insulin E11.9 Active 724907691 Problem Mixed hyperlipidemia E78.2 Active 557296245 ALLERGIES No Information ENCOUNTERS Encounter Location Date Diagnosis [place] [id number] [address]- [address] Jun, [place] [address] [place] [id number] [place] [address] 32658- 8256 May, [place] [address] [place] [id number] [place] [address] 90232- 3032 Apr, [place] [address] [place] [id number] [place] [address] 89365- 1645 Dec, [place] [address] [place] [id number] [place] [address] 88123- 0095 Nov, [place] [address] [place] [id number] [place] [address] 83383- 3302 Nov, Mixed hyperlipidemia E78.2 [facility] [address] [place] [id number] [place] [address] 03356- 5370 Oct, Type 2 diabetes mellitus without complication, without long- term current use of insulin E11.9 ; Mixed hyperlipidemia E78.2 and Obesity (BMI 30.0-34.9) E66.9 [facility] [address] [address]- 9015 Sep, [facility] [address] [place] [address] 65371- 9868 May, [facility] [address] [place] [id number] [place] [address] 54444- 6362 Mar, Type 2 diabetes mellitus without complication, without long- term current use of insulin E11.9 and Mixed hyperlipidemia E78.2 [facility] [address] [place] [address] [address]- 9549 Mar, [facility] [address] [place] [id number] [place] [address] 64200- 2380 Feb, [facility] [address] [place] [id number] [place] [address] 29882- 8853 Feb, [facility] [address] [place] [id number] [place] [address] 53708- 4374 Dec, [facility] [address] [place] [address] 80450- 8514 Dec, [facility] [address] [place] [address] 13459- 4787 Dec, Type 2 diabetes mellitus without complication, without long- term current use of insulin E11.9 ; Mixed hyperlipidemia E78.2 and Chest pain, unspecified type R07.9 [facility] [address] [address]- 9293 Nov, [facility] [address] [address]- 0371 Nov, [facility] [address] [address]- 6404 Oct, [facility] [address] [address]- 4115 Oct, [facility] [address] [address]- 8915 Oct, Balanitis N48.1 ; Routine health maintenance Z00.00 ; Family history of diabetes mellitus Z83.3 ; Family history of cancer Z80.9 and Genital sore R39.89 [facility] [address] [address] 6[address] Jun, [facility] [address] [address]- 5613 Jun, [facility] [address] [place] [address] 82671- 1981 Feb, [facility] [address] [place] [address] 38051- 2719 Feb, [facility] [address] [place] [id number] [place] [address] 02248- 3816 Feb, [facility] [address] [place] [id number] [place] [address] 35180- 4502 Feb, [facility] [address] [place] [id number] [place] [address] 59978- 7923 Jan, [facility] [address] [place] [address] 53710- 2662 Jan, [facility] [address] [address]- 9106 Nov, [facility] [address] [address]- 1780 Nov, [facility] [address] [address]- 2805 Nov, [facility] [address] [address]- 6315 Nov, IMMUNIZATIONS No Known Immunizations SOCIAL HISTORY Never Assessed REASON FOR VISIT med order PLAN OF CARE VITAL SIGNS MEDICATIONS Medication Instructions Dosage Frequency Start Date End Date Duration Status Atorvastatin Calcium 10 mg Orally Once a day 1 tablet 24h Nov, 90 days Active RESULTS No Results PROCEDURES No Known procedures INSTRUCTIONS MEDICATIONS ADMINISTERED No Known Medications MEDICAL (GENERAL) HISTORY Type Description Date Medical History echo- EF 60%, mild mitral/tricuspid regurg. mild-moderate pulmonary HTN Surgical History Right Rotator Cuff Surgical History Right knee Surgery Surgical History surgery on tendons in left wrist Hospitalization History surgeries
--- OUTSIDE RECORDS SUMMARY | 2018-03-13 09:07 | XMS REPORT ---
Author Author KEVIN MCCRARY Organization [facility] Address [address] [place] [address] Care Team Providers Care Orthopaedic Technologist Name Role Phone KEVIN MCCRARY Unavailable PROBLEMS Type Condition ICD9-CM Code SNO19-CF Code Onset Dates Condition Status SNOMED Code Problem Obesity (BMI 30.0-34.9) E66.9 Active 727486743227222 Problem Chest pain, unspecified type R07.9 Active 19792776 Problem Type 2 diabetes mellitus without complication, without long-term current use of insulin E11.9 Active 858754716 Problem Mixed hyperlipidemia E78.2 Active 067860737 ALLERGIES No Known Allergies ENCOUNTERS Encounter Location Date Diagnosis [place] [address] [address]- 5887 Jun, [place] [address] 66818- 9638 May, [place] [address] 45772- 1689 Apr, [place] [address] [place] [id number] [place] [address] 82830- 6213 Dec, [place] [address] [place] [id number] [place] [address] 58348- 7851 Nov, [place] [address] [place] [id number] [place] [address] 68031- 8657 Nov, Mixed hyperlipidemia E78.2 [place] [address] 09137- 1058 Oct, Type 2 diabetes mellitus without complication, without long- term current use of insulin E11.9 ; Mixed hyperlipidemia E78.2 and Obesity (BMI 30.0-34.9) E66.9 [facility] [address], [place] [address]- 2798 Sep, [facility] [address] [place] [id number] [place] [address] 91611- 8577 May, [facility] [address] [place] [id number] [place] [address] 07075- 7221 Mar, Type 2 diabetes mellitus without complication, without long- term current use of insulin E11.9 and Mixed hyperlipidemia E78.2 [facility] [address] [place] [id number] [place] [address] 24208- 6602 Mar, [facility] [address] [place] [id number] [place] [address] 26803- 1088 Feb, [facility] [address] [place] [id number] [place] [address] 58034- 3377 Feb, [facility] [address] [place] [id number] [place] [address] 44421- 7334 Dec, [facility] [address] [place] [address] 90278- 7019 Dec, [facility] [address] [place] [id number] [place] [address] 01614- 7080 Dec, Type 2 diabetes mellitus without complication, without long- term current use of insulin E11.9 ; Mixed hyperlipidemia E78.2 and Chest pain, unspecified type R07.9 [facility] [address], [place] [address]- 0423 Nov, [facility] [address], [place] [address]- 4360 Nov, [facility] [address] [place] [id number] [place] [address] 21510- 6890 Oct, [facility] [address], [place] [address]- 7936 Oct, [facility] [address] [place] [address] 63863- 5003 Oct, Balanitis N48.1 ; Routine health maintenance Z00.00 ; Family history of diabetes mellitus Z83.3 ; Family history of cancer Z80.9 and Genital sore R39.89 [facility] [address], [place] [address]- 5231 Jun, [facility] [address] [place] [address] [place] [address]- 8903 Jun, [facility] [address] [place] [id number] [place] [address] 90429- 2499 Feb, [facility] [address] [place] [id number] [place] [address] 27686- 5364 Feb, [facility] [address] [place] [id number] [place] [address] 18117- 5785 Feb, [facility] [address] [place] [id number] [place] [address] 78465- 8675 Feb, [facility] [address] [place] [id number] [place] [address] 93467- 8707 Jan, [facility] [address] [place] [id number] [place] [address] 01758- 4733 Jan, [facility] [address] [place] [address] 60740- 1205 Nov, [facility] [address], [place] [address]- 6623 Nov, [facility] [address], [place] [address]- 7937 Nov, [facility] [address], [place] [address]- 9815 Nov, IMMUNIZATIONS No Known Immunizations SOCIAL HISTORY Never Assessed REASON FOR VISIT dm f/u, PT is only eating at lunch and if he does eat a dinner that he is bloated and uncomfortable all night- Yury SHANNON PLAN OF CARE Activity Details Follow Up 3 Months Reason:CHM/DM VITAL SIGNS Height 70 in 2016-11-16 Weight 227.8 lbs 2016-11-16 Temperature 97.8 degrees Fahrenheit 2016-11-16 Heart Rate 76 bpm 2016-11-16 Respiratory Rate 18 2016-11-16 BMI 32.68 kg/m2 2016-11-16 Blood pressure systolic 132 mmHg 2016-11-16 Blood pressure diastolic 88 mmHg 2016-11-16 MEDICATIONS Medication Instructions Dosage Frequency Start Date End Date Duration Status OneTouch Ultra Test - USE ONE STRIP TO CHECK GLUCOSE TWICE DAILY 25 Active Lisinopril 5 mg Orally Once a day 1 tablet 24h Oct, 90 days Active Blood Glucose Test Strip Test Strips One Touch twice daily DX E11.9 test blood sugar Nov, Active MetFORMIN HCl ER 500 MG Orally Once a day 1 tablet with evening meal 24h 90 days Active RESULTS Name Result Date Reference Range THYROID ANALYZER 2016-11-16 TSH 0.707 0.450-4.500 CBC 2016-11-16 WBC 5.1 3.4-10.8 RBC 4.87 4.14-5.80 Hemoglobin 14.2 12.6-17.7 Hematocrit 41.8 37.5-51.0 MCV 86 79-97 MCH 29.2 26.6-33.0 MCHC 34.0 31.5-35.7 RDW 14.3 12.3-15.4 Platelets 249 150-379 Neutrophils 35 Lymphs 56 Monocytes 7 Eos 1 Basos 0 Neutrophils (Absolute) 1.8 1.4-7.0 Lymphs (Absolute) 2.8 0.7-3.1 Monocytes(Absolute) 0.4 0.1-0.9 Eos (Absolute) 0.1 0.0-0.4 Baso (Absolute) 0.0 0.0-0.2 Immature Granulocytes 1 Immature Grans (Abs) 0.0 0.0-0.1 MICROALBUMIN/CREATININE RATIO, URINE 2016-11-16 Creatinine, Urine 350.5 Not Estab. Microalbumin, Urine 53.0 Not Estab. Microalb/Creat Ratio 15.1 0.0-30.0 LIPID PANEL 2016-11-16 Cholesterol, Total 198 100-199 Triglycerides 114 0-149 HDL Cholesterol 53 >39 VLDL Cholesterol Dane 23 5-40 LDL Cholesterol Calc 122 0-99 CMP 2016-11-16 Glucose, Serum 85 65-99 BUN 9 6-20 Creatinine, Serum 0.92 0.76-1.27 eGFR If NonAfricn Am 105 >59 eGFR If Africn Am 122 >59 BUN/Creatinine Ratio 10 9-20 Sodium, Serum 141 134-144 Potassium, Serum 4.8 3.5-5.2 Chloride, Serum 102 96-106 Carbon Dioxide, Total 23 18-29 Calcium, Serum 9.3 8.7-10.2 Protein, Total, Serum 7.4 6.0-8.5 Albumin, Serum 4.7 3.5-5.5 Globulin, Total 2.7 1.5-4.5 A/G Ratio 1.7 1.2-2.2 Bilirubin, Total 0.2 0.0-1.2 Alkaline Phosphatase, S 73 39-117 AST (SGOT) 27 0-40 ALT (SGPT) 37 0-44 A1C (IN HOUSE) 2016-11-16 A1C IN HOUSE 6.4 4.3 - 5.6 % Previous A1c 6.4 Lot [id number] Exp date 07/2018 MICROALBUMIN, URINE (IN HOUSE) 2016-11-16 MICROALBUMIN abnormal Lot # [id number] Exp date 06/2017 Clarity clear Color orange ALB 80 CRE 300 A:C (IN HOUSE) 30-300 Control + Control Lot # Exp date PROCEDURES Procedure Date Ordered Result Body Site GLYCATED HEMOGLOBIN TEST Nov 16, 2016 MICROALBUMIN, SEMIQUANT Nov 16, 2016 LAB NOT BILLED BY [facility] Nov 16, 2016 VENIPUNCT, ROUTINE* Nov 16, 2016 INSTRUCTIONS MEDICATIONS ADMINISTERED No Known Medications MEDICAL (GENERAL) HISTORY Type Description Date Medical History echo- EF 60%, mild mitral/tricuspid regurg. mild-moderate pulmonary HTN Surgical History Right Rotator Cuff Surgical History Right knee Surgery Surgical History surgery on tendons in left wrist Hospitalization History surgeries
--- OUTSIDE RECORDS SUMMARY | 2018-03-13 09:07 | XMS REPORT | Continuity of Care Document ---
Author Author 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 01/21/2016 KEVIN MCCRARY ENROLLMENT MANAGEMENT MANAGER Ot E11.9 TYPE 2 DIABETES MELLITUS WITHOUT COMPLIC 01/21/2016 KEVIN MCCRARY ENROLLMENT MANAGEMENT MANAGER Ot E78.2 MIXED HYPERLIPIDEMIA 01/21/2016 KEVIN MCCRARY ENROLLMENT MANAGEMENT MANAGER Ot R07.9 CHEST PAIN, UNSPECIFIED 01/26/2016 RIMA COELHO Ot 603.9 HYDROCELE NOS 01/26/2016 RIMA COELHO Ot 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 01/26/2016 KEVIN MCCRARY ENROLLMENT MANAGEMENT MANAGER Ot E11.9 TYPE 2 DIABETES MELLITUS WITHOUT COMPLIC 01/26/2016 KEVIN MCCRARY ENROLLMENT MANAGEMENT MANAGER Ot E78.2 MIXED HYPERLIPIDEMIA 01/26/2016 KEVIN MCCRARY ENROLLMENT MANAGEMENT MANAGER Ot R07.9 CHEST PAIN, UNSPECIFIED 02/05/2016 KEVIN MCCRARY ENROLLMENT MANAGEMENT MANAGER Ot E11.9 TYPE 2 DIABETES MELLITUS WITHOUT COMPLIC 02/05/2016 KEVIN MCCRARY ENROLLMENT MANAGEMENT MANAGER Ot E78.2 MIXED HYPERLIPIDEMIA 02/05/2016 KEVIN MCCRARY ENROLLMENT MANAGEMENT MANAGER Ot R07.9 CHEST PAIN, UNSPECIFIED 03/15/2017 UZMA VASQUES Ot J11.1 FLU DUE TO UNIDENTIFIED INFLUENZA VIRUS 03/15/2017 UZMA VASQUES Ot R05 COUGH 03/17/2017 UZMA VASQUES Ot J11.1 FLU DUE TO UNIDENTIFIED INFLUENZA VIRUS 03/17/2017 UZMA VASQUES Ot R05 COUGH 11/18/2017 KEVIN MCCRARY ENROLLMENT MANAGEMENT MANAGER Ot M79.9 SOFT TISSUE DISORDER, UNSPECIFIED 12/01/2017 KEVIN MCCRARY ENROLLMENT MANAGEMENT MANAGER Ot M79.9 SOFT TISSUE DISORDER, UNSPECIFIED Procedures Code Description [place] [id number] US SCROTUM ULTRASOUND 12/07/2013 Results Test Result Range LIPID PANEL - 11/16/16 10:44 Cholesterol, Total 198 mg/dL 100-199 Triglycerides 114 mg/dL 0-149 HDL Cholesterol 53 mg/dL >39 VLDL Cholesterol Dane 23 mg/dL 5-40 LDL Cholesterol Calc 122 mg/dL 0-99 CMP - 11/16/16 10:44 Glucose, Serum 85 mg/dL 65-99 BUN 9 mg/dL 6-20 Creatinine, Serum 0.92 mg/dL 0.76-1.27 eGFR If NonAfricn Am 105 mL/min/1.73 >59 eGFR If Africn Am 122 mL/min/1.73 >59 BUN/Creatinine Ratio 10 9-20 Sodium, Serum 141 mmol/L 134-144 Potassium, Serum 4.8 mmol/L 3.5-5.2 Chloride, Serum 102 mmol/L 96-106 Carbon Dioxide, Total 23 mmol/L 18-29 Calcium, Serum 9.3 mg/dL 8.7-10.2 Protein, Total, Serum 7.4 g/dL 6.0-8.5 Albumin, Serum 4.7 g/dL 3.5-5.5 Globulin, Total 2.7 g/dL 1.5-4.5 A/G Ratio 1.7 1.2-2.2 Bilirubin, Total 0.2 mg/dL 0.0-1.2 Alkaline Phosphatase, S 73 IU/L 39-117 AST (SGOT) 27 IU/L 0-40 ALT (SGPT) 37 IU/L 0-44 MICROALBUMIN/CREATININE RATIO, URINE - 11/16/16 10:44 Creatinine, Urine 350.5 mg/dL Not Estab. Microalbumin, Urine 53.0 ug/mL Not Estab. Microalb/Creat Ratio 15.1 mg/g creat 0.0-30.0 Microalb/Creat Ratio, [facility] Ur - 11/16/16 10:44 Creatinine, Urine 350.5 mg/dL Not Estab. Microalbumin, Urine 53.0 ug/mL Not Estab. Microalb/Creat Ratio 15.1 mg/g creat 0.0-30.0 CBC With Differential/Platelet - 11/16/16 10:44 WBC 5.1 x10E3/uL 3.4-10.8 RBC 4.87 x10E6/uL 4.14-5.80 Hemoglobin 14.2 g/dL 12.6-17.7 Hematocrit 41.8 % 37.5-51.0 MCV 86 fL 79-97 MCH 29.2 pg 26.6-33.0 MCHC 34.0 g/dL 31.5-35.7 RDW 14.3 % 12.3-15.4 Platelets 249 x10E3/uL 150-379 Neutrophils 35 % Lymphs 56 % Monocytes 7 % Eos 1 % Basos 0 % Neutrophils (Absolute) 1.8 x10E3/uL 1.4-7.0 Lymphs (Absolute) 2.8 x10E3/uL 0.7-3.1 Monocytes(Absolute) 0.4 x10E3/uL 0.1-0.9 Eos (Absolute) 0.1 x10E3/uL 0.0-0.4 Baso (Absolute) 0.0 x10E3/uL 0.0-0.2 Immature Granulocytes 1 % Immature Grans (Abs) 0.0 x10E3/uL 0.0-0.1 Comp. Metabolic Panel (14) - 11/16/16 10:44 Glucose, Serum 85 mg/dL 65-99 BUN 9 mg/dL 6-20 Creatinine, Serum 0.92 mg/dL 0.76-1.27 eGFR If NonAfricn Am 105 mL/min/1.73 >59 eGFR If Africn Am 122 mL/min/1.73 >59 BUN/Creatinine Ratio 10 9-20 Sodium, Serum 141 mmol/L 134-144 Potassium, Serum 4.8 mmol/L 3.5-5.2 Chloride, Serum 102 mmol/L 96-106 Carbon Dioxide, Total 23 mmol/L 18-29 Calcium, Serum 9.3 mg/dL 8.7-10.2 Protein, Total, Serum 7.4 g/dL 6.0-8.5 Albumin, Serum 4.7 g/dL 3.5-5.5 Globulin, Total 2.7 g/dL 1.5-4.5 A/G Ratio 1.7 1.2-2.2 Bilirubin, Total 0.2 mg/dL 0.0-1.2 Alkaline Phosphatase, S 73 IU/L 39-117 AST (SGOT) 27 IU/L 0-40 ALT (SGPT) 37 IU/L 0-44 Lipid Panel - 11/16/16 10:44 Cholesterol, Total 198 mg/dL 100-199 Triglycerides 114 mg/dL 0-149 HDL Cholesterol 53 mg/dL >39 VLDL Cholesterol Dane 23 mg/dL 5-40 LDL Cholesterol Calc 122 mg/dL 0-99 Thyroid [place] Profile - 11/16/16 10:44 TSH 0.707 uIU/mL 0.450-4.500 THYROID ANALYZER - 11/08/17 11:02 TSH 1.07 mIU/L 0.40-4.50 Encounters ACCT No. Visit Date/Time Discharge Status Pt. Type Provider Facility Loc./Unit Complaint [id number] 03/07/2014 08:59:00 03/07/2014 23:59:59 CLS Outpatient EDY CARREON APRNINA Jensen [id number] 12/07/2013 13:55:00 12/07/2013 23:59:59 [place] [id number] 07/11/2017 10:40:00 07/11/2017 23:59:59 CLS Outpatient KEVIN MCCRARY [facility] [place] [id number] 11/08/2017 11:20:00 Document Registration [id number] 11/16/2016 10:20:00 Document Registration [id number] 11/17/2017 11:02:00 11/17/2017 23:59:59 CLS Outpatient KEVIN MCCRARY APRN [facility] RAD M79.9 MASS OF SOFT TISSUE [id number] 03/15/2017 15:40:00 03/15/2017 17:13:00 DIS Emergency UZMA VASQUES [facility] ER COUGH [id number] 01/20/2016 11:10:00 01/20/2016 23:59:59 CLS Outpatient KEVIN MCCRARY APRN [facility] CARD CHEST PAIN [id number] 12/13/2013 10:05:00 12/13/2013 23:59:59 CLS Outpatient RIMA COELHO [facility] RAD FIRM NON TENDER LEFT SCROTAL MASS [id number] 04/13/2013 10:01:00 04/13/2013 13:35:00 DIS Emergency EVANGELINA ALMAGUER DO [facility] ER FLU SYMPTOMS [id number] 11/17/2016 14:08:00 Document Registration [id number] 11/17/2016 14:08:00 Document Registration
[2018-03-13] MEDS ORDERED: DEXAMETHASONE 10 MG/ML (DECADRON) 1 ML VIAL IM ONE (09:45)
--- NOTE | 2018-03-13 10:01 | ED Cough/URI ---
General Chief Complaint: Cough/Cold/Flu Symptoms Stated Complaint: FEVER/COUGH/CONGESTION Nursing Triage Note: Pt reports cough that has persisted for one week. Pt reports fever this AM. Pt took IBU captain airline pilot at ED. Pt reports chest pressure/pain only with cough. Source: patient Exam Limitations: no limitations History of Present Illness Date Seen by Provider: Mar 13, 2018 Time Seen by Provider: 09:33 Initial Comments Here with report of cough and congestion over the last week. Fever this morning that is better with ibuprofen. Complains of sinus pressure and chest congestion. Patient is a diabetic but states that is actually prediabetic and his sugars are well-controlled. Denies nausea or vomiting. Has 2 children also that have upper respiratory infections. Timing/Duration: week, getting worse Severity/Quality: dry cough Prior Episodes/Possible Cause: occasional episodes Associated Symptoms: cough, fever/chills, muscle aches, nasal congestion, nasal drainage, shortness of breath, sore throat Allergies and Home Medications Allergies Coded Allergies: No Known Drug Allergies (Unverified , 04/13/13) Home Medications Cefprozil 500 Mg Tablet, 1 EACH PO BID Prescribed by: EVANGELINA ALMAGUER on 04/13/13 1201 Oseltamivir Phosphate 75 Mg Cap, 75 MG PO BID Prescribed by: UZMA STRONG on 03/15/17 1704 Patient Home Medication List Home Medication List Reviewed: Yes Review of Systems Review of Systems Constitutional: see HPI, chills, fever EENTM: see HPI Respiratory: cough; No wheezing Cardiovascular: No chest pain, No edema Gastrointestinal: No abdominal pain, No nausea, No vomiting Genitourinary: no symptoms reported Musculoskeletal: muscle pain; No muscle stiffness Skin: no symptoms reported All Other Systems Reviewed Negative Unless Noted: Yes Past Avcvvap-Ndglot-Deipxz Hx Past Med/Social Hx: Reviewed Nursing Past Med/Soc Hx Patient Social History Alcohol Use: Occasionally Uses Recreational Drug Use: No 2nd Hand Smoke Exposure: No Recent Foreign Travel: No Contact w/Someone Who Travel: No Recent Infectious Disease Expo: No Recent Hopitalizations: No Physical Abuse: No Sexual Abuse: No Past Medical History Surgeries: Yes (RIGHT ROTATOR CUFF) Respiratory: No Cardiac: No Neurological: No Gastrointestinal: No Musculoskeletal: No Endocrine: No Cancer: No Psychosocial: No Integumentary: No Blood Disorders: No Family Medical History Reviewed Nursing Family Hx No Pertinent Family Hx Physical Exam Vital Signs - First Documented 03/13/18 09:11 Temp 98.0 Pulse 81 Resp 16 B/P (MAP) 129/101 (110) Pulse Ox 96 O2 Delivery Room Air Capillary Refill : Less Than 3 Seconds Height: 5'6.00" Weight: 200lbs. oz. 90.661150jj; BMI Method:Stated General Appearance: WD/WN, no apparent distress HEENT: PERRL/EOMI, pharyngeal erythema, other (moderate bilateral nasal congestion with clear rhinorrhea and moderate erythema) Neck: full range of motion, supple Respiratory: lungs clear, normal breath sounds, no respiratory distress, no accessory muscle use Cardiovascular: regular rate, rhythm, no murmur Extremities: non-tender, normal inspection Neurologic/Psychiatric: alert, oriented x 3 Skin: normal color, warm/dry Progress/Results/Core Measures Suspected Sepsis Recent Fever Within 48 Hours: Yes Infection Criteria Present: None New/Unexplained Altered Menta: No Sepsis Screen: No Definite Risk SIRS Temperature:98.0 Pulse: 81 Respiratory Rate: 16 Blood Pressure 129 /101 Mean: 110 Results/Orders Micro Results Microbiology 03/13/18 Influenza Types A,B Antigen (OLGA) - Final, Complete My Orders Orders - GRETCHEN ALATORRE MD Influenza A And B Antigens (03/13/18 09:36) Dexamethasone Injection (Decadron Inject (03/13/18 09:45) Medications Given in ED Current Medications Medications Dose Ordered Sig/Jonathan Route Start Time Stop Time Status Last Admin Dose Admin Dexamethasone Sodium Phosphate 10 mg ONCE ONCE IM 03/13/18 09:45 03/13/18 09:46 DC 03/13/18 10:00 10 MG Vital Signs/I&O 03/13/18 03/13/18 09:11 09:11 Temp 98.0 Pulse 81 Resp 16 B/P (MAP) 129/101 (110) Pulse Ox 96 O2 Delivery Room Air Room Air Capillary Refill : Less Than 3 Seconds Blood Pressure Mean: 110 Progress Note : Progress Note Seen and evaluated. Influenza screen ordered. Decadron 10 mg IM. Discharged home with return precautions. Patient verbalize understanding instructions and agreement with plan. Departure Impression Primary Impression: Upper respiratory infection Qualified Codes: J06.9 - Acute upper respiratory infection, unspecified Disposition: HOME, SELF-CARE Condition: Stable Departure-Patient Inst. Decision time for Depature: 10:01 Referrals: [facility] (PCP) Primary Care Physician KEVIN MCCRARY APRN (Family) Primary Care Physician Patient Instructions: Viral Upper Respiratory Infection, Adult (DC) Add. Discharge Instructions: All discharge instructions reviewed with patient and/or family. Voiced understanding. You may use Afrin nasal spray or the generic, 12 hour relief, 2 sprays to each nostril twice daily for 3 days only and then stop. Do not use for more than 3 days. Drink plenty of fluids. Continue ibuprofen 800 mg every 8 hours as needed for fever or pain. You may also take Tylenol/acetaminophen 1000 mg every 8 hours as needed for fever or pain. Follow-up with your Dr. in a few days for recheck if not improved. Return for worse pain, fever, vomiting, weakness, breathing problems or other concerns as needed. GRETCHEN ALATORRE MD Mar 13, 2018 10:01
[2018-03-13 10:30] VITALS: BP 129/101
== END 2018-03-13 10:30 | disposition home or self-care (01) ==
LOC: EDUNIT# 09:00 → ER 09:02
DX: J06.9 Acute upper respiratory infection, unspecified (principal)
CPT/HCPCS: 87804

== ENCOUNTER 2018-03-15 11:38 | Emergency (ER) | payer MEDICAID ==
[~2018-03-15] VITALS: Ht 167.6 cm; Wt 90.7 kg
--- NOTE | 2018-03-15 12:07 | Diagnostic Imaging Report ---
INDICATION: Cough. TIME OF EXAM: 12:23 p.m. Correlation is made with prior exam from 04/13/2013. The heart size is normal. The pulmonary vascularity is unremarkable. The lungs are clear. No infiltrate, effusion or pneumothorax is detected. IMPRESSION: No acute cardiopulmonary process is detected. Dictated by: Dictated on workstation # [id number]
[2018-03-15] MEDS ORDERED: D-ME473S38 PO (12:18)
[2018-03-15] MEDS ORDERED: AZIT250T PO (12:18)
[2018-03-15] MEDS ORDERED: METH4TAB PO (12:18)
--- NOTE | 2018-03-15 12:18 | ED Cough/URI ---
General Chief Complaint: Cough/Cold/Flu Symptoms Stated Complaint: CHEST PAIN;FEVER;COUGH Source: patient Exam Limitations: no limitations History of Present Illness Date Seen by Provider: Mar 15, 2018 Time Seen by Provider: 11:45 Initial Comments Patient is a 42-year-old male who presents to the emergency room with complaints of fever, cough, chest soreness when coughing, nasal congestion. He was seen and evaluated in this emergency room 2 days ago and was diagnosed with upper respiratory infection and was given steroid injection and a prescription for nasal spray. He had negative influenza testing at this time. He reports that he felt good for one day and then his symptoms started again. Denies taking any Tylenol or ibuprofen for fever. He has had these symptoms for one week. He has not made an appointment to see his primary care provider. Timing/Duration: week Severity/Quality: productive cough Associated Symptoms: chest pain/soreness, cough, fever/chills, headache, nasal congestion Allergies and Home Medications Allergies Coded Allergies: No Known Drug Allergies (Unverified , 04/13/13) Home Medications Azithromycin 250 Mg Tablet, 250 MG PO UD TAKE 2 TABLETS TODAY, THEN TAKE 1 TABLET DAILY FOR 4 MORE DAYS Prescribed by: FABY HALL on 03/15/18 1218 Cefprozil 500 Mg Tablet, 1 EACH PO BID Prescribed by: EVANGELINA ALMAGUER on 04/13/13 1201 Methylprednisolone 4 Mg Tab.ds.pk, 4 MG PO UD Prescribed by: FABY HALL on 03/15/18 1218 Oseltamivir Phosphate 75 Mg Cap, 75 MG PO BID Prescribed by: UZMA STRONG on 03/15/17 1704 Promethazine/Dextromethorphan 473 Ml Syrup, 5 ML PO Q4H PRN for COUGH Prescribed by: FABY HALL on 03/15/18 1218 Past Cwerouy-Xtvzew-Xruxuk Hx Patient Social History Alcohol Use: Denies Use Recreational Drug Use: No 2nd Hand Smoke Exposure: No Recent Hopitalizations: No Past Medical History Surgeries: Yes (RIGHT ROTATOR CUFF) Respiratory: No Cardiac: No Neurological: No Gastrointestinal: No Musculoskeletal: No Endocrine: No Cancer: No Psychosocial: No Integumentary: No Blood Disorders: No Family Medical History No Pertinent Family Hx Physical Exam Capillary Refill : Height: 5'6.00" Weight: 200lbs. oz. 90.516729nt; BMI Method:Stated Progress/Results/Core Measures Suspected Sepsis SIRS Temperature: Pulse: Respiratory Rate: Blood Pressure / Mean: Results/Orders My Orders Orders - FABY HALL Chest Pa/Lat (2 View) (03/15/18 11:50) Vital Signs/I&O Capillary Refill : Departure Impression Primary Impression: Upper respiratory infection Additional Impression: Bronchitis Disposition: 01 HOME, SELF-CARE Condition: Stable/Unchanged Departure-Patient Inst. Decision time for Depature: 12:15 Referrals: [facility] (PCP) Primary Care Physician KEVIN MCCRARY APRN (Family) Primary Care Physician Patient Instructions: Bronchiolitis (DC) Add. Discharge Instructions: Take medications as directed. Follow-up with her primary care provider within 1 week for recheck. Tylenol and ibuprofen for pain and fever. Return back to the emergency room for any worsening symptoms or concerns as needed. All discharge instructions reviewed with patient and/or family. Voiced understanding. Scripts Promethazine/Dextromethorphan (Promethazine-Dm Syrup) 473 Ml Syrup 5 ML PO Q4H PRN for COUGH, #60 ML Prov: FABY HALL 03/15/18 Methylprednisolone (Medrol) 4 Mg Tab.ds.pk 4 MG PO UD, #1 PKG Prov: FABY HALL 03/15/18 Azithromycin (Zithromax) 250 Mg Tablet 250 MG PO UD, #6 TAB TAKE 2 TABLETS TODAY, THEN TAKE 1 TABLET DAILY FOR 4 MORE DAYS Prov: FABY HALL 03/15/18 FABY HALL Mar 15, 2018 12:18
[2018-03-15 12:35] VITALS: BP 147/89
== END 2018-03-15 12:35 | disposition home or self-care (01) ==
LOC: EDUNIT# 11:38 → ER 11:40
DX: J06.9 Acute upper respiratory infection, unspecified (principal); J40 Bronchitis, not specified as acute or chronic; R07.9 Chest pain, unspecified; Z79.52 Long term (current) use of systemic steroids
CPT/HCPCS: 71046

== ENCOUNTER 2019-08-19 01:56 | Emergency (ER) | payer MEDICAID, OTHER ==
[~2019-08-19 01:56] MED LIST changes: +AZIT250T PO; +D-ME473S11 PO; +METH4TAB PO
--- OUTSIDE RECORDS SUMMARY | 2019-08-19 02:03 | XMS REPORT | Continuity of Care Document ---
Author Organization Unknown Address Unknown Phone Unavailable Allergies There is no data. Medications There is no data. 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 03/07/2014 RONNY CARREON APRN 250.00 DIABETES MELLITUS WITHOUT MENTION OF COM PLICATION TYPE II OR UNSPECIFIED TYPE NOT STATED UNCONTROLLED 03/07/2014 RONNY CARREON APRN 272.4 OTHER AND UNSPECIFIED HYPERLIPIDEMIA 03/07/2014 RONNY CARREON APRN 608.9 UNSPECIFIED DISORDER OF MALE GENITAL ORGANS 03/07/2014 RONNY CARREON APRN 790.29 OTHER ABNORMAL GLUCOSE Procedures Code Description [place] [address] S CROTUM ULTRASOUND 12/07/2013 Results Test Result Range CBC With Differential/Platelet - 7 10:44 WBC 5.1 x10E3/uL 3.4-10.8 RBC 4.87 x10E6/uL 4.14-5.80 Hemoglobin 14.2 g/dL 12.6-17.7 Hematocrit 41.8 % 37.5-51.0 MCV 86 fL 79-97 MCH 29.2 pg 26.6-33.0 MCHC 34.0 g/dL 31.5-35.7 RDW 14.3 % 12.3-15.4 Platelets 249 x10E3/uL 150-379 Neutrophils 35 % Lymphs 56 % Monocytes 7 % Eos 1 % Basos 0 % Neutrophils (Absolute) 1.8 x10E3/uL 1.4- 7.0 Lymphs (Absolute) 2.8 x10E3/uL 0.7-3.1 Monocytes(Absolute) 0.4 x10E3/uL 0.1-0.9 Eos (Absolute) 0.1 x10E3/uL 0.0-0.4 Baso (Absolute) 0.0 x10E3/uL 0.0-0.2 Immature Granulocytes 1 % Immature Grans (Abs) 0.0 x10E3/uL 0.0-0. 1 Comp. Metabolic Panel (14) - 11/16/16 10 :44 Glucose, Serum 85 mg/dL 65-99 BUN 9 mg/dL 6-20 Creatinine, Serum 0.92 mg/dL 0.76-1.27 eGFR If NonAfricn Am 105 mL/min/1.73 >59 eGFR If Africn Am 122 mL/min/1.73 >5 9 BUN/Creatinine Ratio 10 9-20 Sodium, Serum 141 [...] LDL Cholesterol Calc 122 mg/dL 0-99 Thyroid [place] Profile - 11/16/16 10:44 TSH 0.707 uIU/mL 0.450-4.500 Microalb/Creat Ratio, [facility] Ur - 7 10:44 Creatinine, Urine 350.5 mg/dL Not Estab. Microalbumin, Urine 53.0 ug/mL Not Estab . Microalb/Creat Ratio 15.1 mg/g creat 0.0 -30.0 Encounters ACCT No. Visit Date/Time Discharge Status Pt. Type Provider Facility Loc./Unit Complaint [id number] 03/07/2014 08:59:00 03/07/2014 23:59: 59 CLS Outpatient RONNY CARREON APRN [id number] 12/07/2013 13:55:00 12/07/2013 23:59: 59 CLS Outpatient JUSTIN GOODWIN DO [id number] 11/17/2016 14:08:00 Document Registration [id number] 11/17/2016 14:08:00 Document Registration
--- NOTE | 2019-08-19 02:13 | ED Chest Pain ---
General Chief Complaint: Chest Pain Stated Complaint: CHEST PAIN Source: patient Exam Limitations: no limitations History of Present Illness Date Seen by Provider: August 19, 2019 Time Seen by Provider: 02:08 Timing/Duration: 4-6 hours Severity/Quality: moderate Location: epigastric Radiation: back Activities at Onset: other (eating) ASA po DIRECTOR OF OFFICIATING: No NTG SL DIRECTOR OF OFFICIATING: No Associated Symptoms: abdominal pain, back pain; No diaphoresis, No fever/c hills, No heartburn, No nausea/vomiting Allergies and Home Medications Allergies Coded Allergies: No Known Drug Allergies (Unverified , 08/19/19) Patient Home Medication List Home Medication List Reviewed: Yes Review of Systems Review of Systems Constitutional: no symptoms reported EENTM: No Symptoms Reported Respiratory: No Symptoms Reported; Denies Cough, Denies Shortness of Air Cardiovascular: See HPI Gastrointestinal: See HPI Genitourinary: No Symptoms Reported Musculoskeletal: no symptoms reported Skin: no symptoms reported Psychiatric/Neurological: No Symptoms Reported Endocrine: No Symptoms Reported Hematologic/Lymphatic: No Symptoms Reported Past Feqmhjn-Uufdxa-Mtomqv Hx Past Med/Social Hx: Reviewed Nursing Past Med/Soc Hx Patient Social History Recent Foreign Travel: No Contact w/Someone Who Travel: No Physical Exam Vital Signs Vital Signs - First Documented 08/19/19 02:05 Temp 35.7 Pulse 69 Resp 24 B/P (MAP) 154/100 (118) Pulse Ox 99 O2 Delivery Room Air Capillary Refill : Height, Weight, BMI Height: '" Weight: lbs. oz. kg; BMI Method: General Appearance: No Apparent Distress, WD/WN HEENT: PERRL/EOMI, Normal ENT Inspection, Pharynx Normal Neck: Full Range of Motion, Normal Inspection, Non Tender Respiratory: Chest Non Tender, Lungs Clear, No Accessory Muscle Use Cardiovascular: Regular Rate, Rhythm, No Edema, No Gallop Gastrointestinal: Normal Bowel Sounds, Tenderness (right upper quadrant), Other (Elizondo's sign positive) Extremity: Normal Capillary Refill, Normal Inspection, Normal Range of Motion, Non Tender, No Calf Tenderness Neurologic/Psychiatric: Alert, Oriented x3, No Motor/Sensory Deficits, Normal Mood/Affect Skin: Normal Color, Warm/Dry Lymphatic: No Adenopathy Progress/Results/Core Measures Results/Orders Lab Results Laboratory Tests Test 08/19/19 02:05 Range/Units White Blood Count 6.1 4.3-11.0 10^3/uL Red Blood Count 4.82 4.35-5.85 10^6/uL Hemoglobin 14.4 13.3-17.7 G/DL Hematocrit 42 40-54 % Mean Corpuscular Volume 88 80-99 FL Mean Corpuscular Hemoglobin 30 25-34 PG Mean Corpuscular Hemoglobin Concent 34 32-36 G/DL Red Cell Distribution Width 13.3 10.0-14.5 % Platelet Count 226 130-400 10^3/uL Mean Platelet Volume 9.4 7.4-10.4 FL Neutrophils (%) (Auto) 37 L 42-75 % Lymphocytes (%) (Auto) 50 H 12-44 % Monocytes (%) (Auto) 10 0-12 % Eosinophils (%) (Auto) 2 0-10 % Basophils (%) (Auto) 1 0-10 % Neutrophils # (Auto) 2.3 1.8-7.8 X 10^3 Lymphocytes # (Auto) 3.0 1.0-4.0 X 10^3 Monocytes # (Auto) 0.6 0.0-1.0 X 10^3 Eosinophils # (Auto) 0.1 0.0-0.3 10^3/uL Basophils # (Auto) 0.0 0.0-0.1 10^3/uL Prothrombin Time 13.0 12.2-14.7 SEC INR Comment 1.0 0.8-1.4 Sodium Level 142 135-145 MMOL/L Potassium Level 4.2 3.6-5.0 MMOL/L Chloride Level 103 98-107 MMOL/L Carbon Dioxide Level 26 21-32 MMOL/L Anion Gap 13 5-14 MMOL/L Blood Urea Nitrogen 15 7-18 MG/DL Creatinine 0.97 0.60-1.30 MG/DL Estimat Glomerular Filtration Rate > 60 BUN/Creatinine Ratio 15 Glucose Level 112 H 70-105 MG/DL Calcium Level 9.8 8.5-10.1 MG/DL Corrected Calcium 9.4 8.5-10.1 MG/DL Magnesium Level 2.5 H 1.6-2.4 MG/DL Total Bilirubin 0.2 0.1-1.0 MG/DL Aspartate Amino Transf (AST/SGOT) 41 H 5-34 U/L Alanine Aminotransferase (ALT/SGPT) 51 0-55 U/L Alkaline Phosphatase 116 40-136 U/L Troponin I < 0.30 <0.30 NG/ML Total Protein 7.3 6.4-8.2 GM/DL Albumin 4.5 3.2-4.5 GM/DL Lipase 51 8-78 U/L My Orders Orders - MCCRARY,MANOJ B DO Cbc With Automated Diff (08/19/19 02:18) Magnesium (08/19/19 02:18) Chest 1 View Ap/Pa Only (08/19/19 02:18) Ekg Tracing (08/19/19 02:18) Comprehensive Metabolic Panel (08/19/19 02:18) Protime With Inr (08/19/19 02:18) O2 (08/19/19 02:18) Monitor-Rhythm Ecg Trace Only (08/19/19 02:18) Ed Iv/Invasive Line Start (08/19/19 02:18) Lipase (08/19/19 02:18) Troponin I Fs (08/19/19 02:18) Ketorolac Injection (Toradol Injection) (08/19/19 02:30) Ekg Tracing (08/19/19 02:20) Antacid Suspension (Mylanta Suspension (08/19/19 02:45) Famotidine Injection (Pepcid Injection) (08/19/19 09:00) Famotidine Injection (Pepcid Injection) (08/19/19 02:44) Medications Given in ED Current Medications Medications Dose Ordered Sig/Jonathan Route Start Time Stop Time Status Last Admin Dose Admin Al Hydrox/Mg Hydrox/Simethicone 30 ml ONCE ONCE PO 08/19/19 02:45 08/19/19 02:46 DC 08/19/19 02:58 30 ML Famotidine 20 mg STK-MED ONCE .ROUTE 08/19/19 02:44 08/19/19 02:53 DC 08/19/19 02:59 20 MG Ketorolac Tromethamine 30 mg ONCE ONCE IVP 08/19/19 02:30 08/19/19 02:31 DC 08/19/19 02:26 30 MG Vital Signs/I&O 08/19/19 08/19/19 02:05 02:05 Temp 35.7 Pulse 69 Resp 24 B/P (MAP) 154/100 (118) Pulse Ox 99 O2 Delivery Room Air Room Air Progress Progress Note : Progress Note Social 43-year-old with epigastric right upper quadrant pain that occurred after eating at [employer] persisted and is worse with taking a deep breath and radiates to the right shoulder in the back area denies a history of same in the past no history of dyspepsia no history of shortness of breath no cough no trauma no travel. Patient is a diabetic. Nonsmoker. Differential unlikely ACS possible pancreatitis possible cholecystitis. Plan IV fluids medications risk stratification screening labs determination of need for admission versus discharge Initial ECG Impression Date: August 19, 2019 Initial ECG Impression Time: 02:10 Initial ECG Rate: 74 Initial ECG Rhythm: Normal Sinus Initial ECG Impression: Nonspecific Changes, Atrial Fibrillation Comment Heart Score= 2 for risk and nd t changes. PERC 0 EKG : EKG Time: 02:36 Rhythm: Normal Sinus Intervals: Normal ECG Impression: Normal Departure Communication (Admissions) Patient's heart score being low EKG with pain being normal physical examination with right upper quadrant tenderness with positive Elizondo's total relief of his pain with Toradol most likely is biliary tract disease. Patient was advised low- fat diet recommended follow-up his primary care provider Impression Primary Impression: Right upper quadrant abdominal pain Disposition: 01 HOME, SELF-CARE Condition: Improved (reexamination patient has no Elizondo's no right upper quadrant tenderness and states all pain has been relieved) Departure-Patient Inst. Referrals: NO,LOCAL PHYSICIAN (PCP/Family) Primary Care Physician Follow-up with your primary care physician this week for an ultrasound of the right upper quadrant consideration for a HIDA scan Patient Instructions: Gallstones (DC), HIDA Scan (DC) MANOJ MCCRARY DO August 19, 2019 02:13
[2019-08-19 02:23] LABS: BASOPHILS % (AUTO) 1 % (0-10); EOSINOPHILS % (AUTO) 2 % (0-10); HEMATOCRIT 42 % (40-54); HEMOGLOBIN 14.4 G/DL (13.3-17.7); LYMPHOCYTES % (AUTO) 50 % (12-44); MEAN CORPUSCULAR HEMOGLOBIN 30 PG (25-34); MEAN CORPUSCULAR HGB CONC 34 G/DL (32-36); MEAN CORPUSCULAR VOLUME 88 FL (80-99); MEAN PLATELET VOLUME 9.4 FL (7.4-10.4); MONOCYTES % (AUTO) 10 % (0-12); NEUTROPHILS % (AUTO) 37 % (42-75); PLATELET COUNT 226 10^3/uL (130-400); RED CELL DISTRIBUTION WIDTH 13.3 % (10.0-14.5); WHITE BLOOD COUNT 6.1 10^3/uL (4.3-11.0)
[2019-08-19 02:24] LABS: EOSINOPHILS # (AUTO) 0.1 10^3/uL (0.0-0.3); MONOCYTES # (AUTO) 0.6 X 10^3 (0.0-1.0); NEUTROPHILS # (AUTO) 2.3 X 10^3 (1.8-7.8)
[2019-08-19] MEDS ORDERED: KETOROLAC 30 MG/ML VIAL IVP ONE (02:30)
[2019-08-19 02:32] LABS: ALANINE AMINOTRANSFERASE 51 U/L (0-55); ALKALINE PHOSPHATASE 116 U/L (40-136); BILIRUBIN,TOTAL 0.2 MG/DL (0.1-1.0); BUN/CREATININE RATIO 15; CALCIUM 9.8 MG/DL (8.5-10.1); CARBON DIOXIDE 26 MMOL/L (21-32); CHLORIDE 103 MMOL/L (98-107); CREATININE SERUM 0.97 MG/DL (0.60-1.30); GFR ESTIMATED > 60; GLUCOSE 112 MG/DL (70-105); MAGNESIUM 2.5 MG/DL (1.6-2.4); POTASSIUM 4.2 MMOL/L (3.6-5.0); SODIUM 142 MMOL/L (135-145); TOTAL PROTEIN 7.3 GM/DL (6.4-8.2)
[2019-08-19 02:33] LABS: ALBUMIN 4.5 GM/DL (3.2-4.5); LIPASE 51 U/L (8-78)
--- NOTE | 2019-08-19 02:35 | NUR ---
AFTER THE PAIN MEDICATION WAS GIVEN THE PT IS NO LONGER CLINCHING HIS CHEST.
[2019-08-19] MEDS ORDERED: FAMOTIDINE 20MG/2ML IV (PEPCID) ONE (02:44)
[2019-08-19] MEDS ORDERED: ANTACID SUSP 30 ML UDC (MYLANTA) PO ONE (02:45)
[2019-08-19 03:09] VITALS: BP 154/100
--- NOTE | 2019-08-19 07:25 | Diagnostic Imaging Report ---
INDICATION: Chest pain. TECHNIQUE: Single view chest 2:23 AM. CORRELATION STUDY: None FINDINGS: Heart size borderline enlarged. Vasculature within normal limits. The lungs are clear with no consolidating infiltrate. There is no significant effusion or pneumothorax. IMPRESSION: 1. Borderline heart size with normal vasculature. Dictated by: Dictated on workstation # [id number]
[2019-08-19] MEDS ORDERED: FAMOTIDINE 20MG/2ML IV (PEPCID) IVP SCH (09:00)
[2019-08-19] MEDS ORDERED: OMEP20TA7 PO (09:47)
[2019-08-19] MEDS ORDERED: FAMO-119 PO (09:47)
[2019-08-19] MEDS ORDERED: SUCR1TAB36 PO (09:47)
== END 2019-08-19 03:11 | disposition home or self-care (01) ==
LOC: MERGE 02:00 → ER FS 02:00
DX: R10.11 Right upper quadrant pain (principal)
CPT/HCPCS: 36415; 71045; 80053; 83690; 83735; 84484; 85025; 85610; 93005; 93041; 96374; 96375

== ENCOUNTER 2019-08-19 08:15 | Emergency (ER) | payer MEDICAID ==
[~2019-08-19] VITALS: Ht 165 cm; Wt 90.7 kg
--- OUTSIDE RECORDS SUMMARY | 2019-08-19 08:20 | XMS REPORT | Encounter Summary ---
Author Author [facility] Organization [facility] Address Unknown Phone Unavailable Care Team Providers Care Professor Of Religious Studies Name Role Phone PCP Unavailable Encounter Details Care Team Description Date Type Department Philipp Reyes MD [address] [place] [address] [phone] Emergency, PhysicianMD Headache 08/04/2010 [facility] al Encounter [address] [place] [address] Social History Date Tobacco Use Types Packs/Day Years Used Never Assessed Sex Assigned at Date Recorded Not on file Industry Job Start Date Occupation Not on file Not on file Not on file Travel End Travel History Travel Start No recent travel history available. documented as of this encounter Plan of Treatment Not on filedocumented as of this encounter Procedures Comments Procedure Name Priority Date/Time Associated Diag nosis CT HEAD WO CONTRAST Routine 08/04/2010 9:08 PM CDT documented in this encounter Results * CT Head wo contrast (08/04/2010 9:08 PM CDT) Specimen Narrative Performed At REPORT [facility] Patient: AISHA LAMAR Phone #: [facility] Rec#: [id number] Sex: M : 1975 Carmen#: [id number] Location: [facility] Check-in#: [id number] Procedure Requested: [id number] CT HEAD WO C ONTRAST Reason For Exam: HEADACHE Exam Ordered: 08/04/2010 210 0 Exam Date/Time: 08/04/20102107 Check-in Date/Time: 08/04/20102100 Attendin EMERGENCY, PHYSI ALEC "" Requestin PHILIPP REYES Referrin NO, REFERRING Primary Care: NO, FAMILY CT of the head: (Without contrast) Clinical Indication: [headache] Comparison: None 5 mm axial tomographic images were obta ined to the head without contrast. These were viewed on brain an d bone windows. There is no midline shift. No intra or extra-axial mass or hemorrhage is identified. The shields-white matter junct ion is normal. The ventricles are normal in size, shape and location. No soft tissue abnormality seen. Mild mucosal thickening and patchy opac ification of the ethmoid sinuses. Remaining visible mastoids, paranasal s inuses, and orbits are normal. Conclusion: 1. No acute intracranial process per un enhanced CT head. 2. Mild ethmoid sinus disease. ATTESTATION STATEMENT: The Staff Radiologist has personally re viewed this study and agrees with the findings in this report. Signed (Authenticated, Released) Date-T braulio: 08/05/2010 1159 [employer]inder- LEONARDA SIMS M.D., Staff Radiologist Dictated By- Jensen EMERY M.D.dentosin Staff Physician- LEONARDA SIMS M.D., Staff Radiologist Authenticated By- LEONARDA SIMS M.D., Staff Radiologist Procedure Note Interface, Rad Conversion - 05/19/2013 2:51 PM FORECLOSURE [facility] REPORT Patient: AISHA LAMAR Phone #: Med Rec#: [id number] Sex: M : 1975 Carmen#: [id number] Location: [facility] Check-in#: [id number] Procedure Requested: [id number] CT HEAD WO CONTRAST Reason For Exam: HEADACHE Exam Ordered: 08/04/20102099 Exam Date/Time: 08/04/20102107 Check-in Date/Time: 08/04/20102100 Attendin EMERGENCY, PHYSICIAN "" Requestin PHILIPP REYES Referrin NO, REFERRING Primary Care: DERRELL, FAMILY CT of the head: (Without contrast) Clinical Indication: [headache] Comparison: None 5 mm axial tomographic images were obtai adonis to the head without contrast. These were viewed on brain and bone windows. There is no midline shift. No intra or extra-axial mass or hemorrhage is identified. The shields-white matter junction is normal. The ventricles are normal in size, shape and location. No soft tissue abnormality seen. Mild mucosal thickening and patchy opacification of the ethmoid sinuses. Remaining visible mastoids, paranasal sinuses, and orbits are normal. Conclusion: 1. No acute intracranial process per une nhanced CT head. 2. Mild ethmoid sinus disease. ATTESTATION STATEMENT: The Staff Radiologist has personally reviewed this study and agrees with the findings in this report. Signed (Authenticated, Released) Date-Time: 08/05/2010 3529 [employer]inder- LEONARDA SIMS M.D., Staff Radiologist Dictated By- HAJA ZUNIGA M.D., Resident Staff Physician- LEONARDA SIMS M.D., Staff Radiologist Authenticated By- LEONARDA SIMS M.D., Staff Radiologist Performing Organization Address City/State/Zipcode Ph one Number [place] documented in this encounter Visit Diagnoses Diagnosis Headache(784.0) Headache documented in this encounter
--- OUTSIDE RECORDS SUMMARY | 2019-08-19 08:20 | XMS REPORT | Encounter Summary ---
Author Author [facility] Organization [facility] Address Unknown Phone Unavailable Care Team Providers Care Poultry Hanger Name Role Phone PCP Unavailable Encounter Details Care Team Description Date Type Department Tim Cespedes, DO [address] [place] [address] [phone] UNSPECIFIED VIRAL INFECTION 01/29/2003 [facility] Encounter [address] [place] [address] Social History Date Tobacco Use Types Packs/Day [...] Procedure Name Priority Date/Time Associated Diag nosis URINALYSIS (INCLUDES Routine 01/29/2003 MICROSCOPIC REVIEW, IF 8:00 PM PAPER PLATE MACHINE TENDER INDICATED) DIFFERENTIAL Routine 01/29/2003 7:55 PM PAPER PLATE MACHINE TENDER CBC AND DIFF (MANUAL DIFF Routine 01/29/2003 IF NECESSARY) 7:55 PM PAPER PLATE MACHINE TENDER BASIC METABOLIC PANEL Routine 01/29/2003 7:55 PM PAPER PLATE MACHINE TENDER documented in this encounter Results * Urinalysis (01/29/2003 8:00 PM PAPER PLATE MACHINE TENDER) Appearance, YELLOW SUNQUEST Urine Specific 1.020 <1.030 SUNQUEST [place], UA PH Urine 7.5 5.0 - 8.0 SUNQUEST Hemoglobin NEGATIVE NEGATIVE [place]QUEST Urine Ketones Urine NEGATIVE NEGATIVE [place] Glucose Urine NEGATIVE NEGATIVE [place] Protein Urine NEGATIVE NEGATIVE SUNQUEST Qual Leukocyte NEGATIVE NEGATIVE [place] Esterase Urobilinogen NEGATIVE NEGATIVE SUNQUEST Urine Bilirubin Urine NEGATIVE NEGATIVE SUNQUEST Specimen Urine Performing Organization Address City/State/[facility] one Number [facility] [address] [place] [phone] SUN[place] * DIFFERENTIAL (01/29/2003 7:55 PM PAPER PLATE MACHINE TENDER) % Neutrophils 69 45 - 78 % SUNQUEST %Lymphocytes 20 15 - 47 % SUNQUEST %Monocytes 8 0 - 12 % SUNQUEST %Eosinophils 2 0 - 7 % SUNQUEST %Basophils 1 0 - 2 % SUNQUEST # Granulocytes 7.6 (H) 1.7 - 6.8 TH/UL SUNQUEST # Lymphocytes 2.2 1.0 - 3.3 TH/UL SUNQUEST # Monocytes 0.9 0.2 - 0.9 TH/UL SUNQUEST # Eosinophils 0.2 0.0 - 0.4 TH/UL SUNQUEST # Basophils 0.1 0.0 - 0.2 TH/UL SUNQUEST Specimen Blood Performing Organization Address [facility] one Number [facility] [address] [place] [phone] SUN[place] * CBC and Diff (manual diff if necessary) (01/29/2003 7:55 PM PAPER PLATE MACHINE TENDER) WBC 11.0 4.0 - 11.0 TH/UL SUNQUEST RBC 5.29 4.31 - 5.84 MIL/UL SUNQUEST Hemoglobin 15.8 13.0 - 17.0 G/DL SUNQUEST Hematocrit 46 40 - 50 % SUNQUEST MCV 87 80 - 99 FL SUNQUEST MCH 30 27 - 34 PG SUNQUEST MCHC 34 32 - 36 % SUNQUEST RDW 12.2 <14.5 % SUNQUEST Platelet Count 248 140 - 400 TH/UL SUNQUEST Specimen Blood Performing Organization Address [facility] one Number [facility] [address] [place] [phone] SUNQUEST * Basic Metabolic Panel (01/29/2003 7:55 PM PAPER PLATE MACHINE TENDER) Sodium 140 134 - 144 MEQ/L SUNQUEST Potassium 3.8 3.6 - 5.0 MEQ/L SUNQUEST Chloride 102 98 - 107 MEQ/L SUNQUEST Carbon Dioxide 26 23 - 32 MEQ/L SUNQUEST Anion Gap 12 3 - 15 SUNQUEST Creatinine 1.1 0.5 - 1.5 MG/DL SUNQUEST Blood Urea 10 5 - 20 MG/DL SUNQUEST Nitrogen Glucose 98 65 - 110 MG/DL SUNQUEST Calcium 9.6 8.8 - 10.5 MG/DL SUNQUEST Specimen Blood Performing Organization Address City/State/Zipcode Ph one Number RL [address] [place], [place] [address] SUN[place] documented in this encounter Visit Diagnoses Diagnosis Unspecified viral infection, in conditi ons classified elsewhere and of unspecified site documented in this encounter
--- OUTSIDE RECORDS SUMMARY | 2019-08-19 08:20 | XMS REPORT | Clinical Summary ---
Author Author [facility] Organization [facility] Address Unknown Phone Unavailable Care Team Providers Care Skiver Blockers Name Role Phone PCP Unavailable Allergies Not on File Medications Not on file Active Problems Not on file Social History Date Tobacco Use Types Packs/Day Years Used Never Assessed Sex Assigned at Date Recorded Not on file Industry Job Start Date Occupation Not on file Not on file Not on file Travel End Travel History Travel Start No recent travel history available. Last Filed Vital Signs Not on file Plan of Treatment Not on file Results Not on filefrom Last 3 Months
--- OUTSIDE RECORDS SUMMARY | 2019-08-19 08:21 | XMS REPORT | Encounter Summary ---
Author Author [facility] Organization [facility] Address Unknown Phone Unavailable Care Team Providers Care Flash Designer Name Role Phone PCP Unavailable Encounter Details Care Team Description Date Type Department Brock Pressley MD [address] [place] [address] [phone] [facility] [address] [place] [address] Social History Date Tobacco Use Types Packs/Day Years Used Never Assessed Sex Assigned at Date Recorded Not on file Industry Job Start Date Occupation Not on file Not on file Not on file Travel End Travel History Travel Start No recent travel history available. documented as of this encounter Plan of Treatment Not on filedocumented as of this encounter Visit Diagnoses Not on filedocumented in this encounter
--- OUTSIDE RECORDS SUMMARY | 2019-08-19 08:21 | XMS REPORT | Continuity of Care Document ---
[...] Code Description [place] [address] [address] 12/07/2013 Results Test Result [...] LDL Cholesterol Calc 122 mg/dL 0-99 Thyroid Rush Profile - 11/16/16 10:44 TSH 0.707 uIU/mL 0.450-4.500 Microalb/Creat Ratio, Randm Ur - 7 10:44 Creatinine, Urine 350.5 mg/dL Not Estab. Microalbumin, Urine 53.0 ug/mL Not Estab . Microalb/Creat Ratio 15.1 mg/g creat 0.0 -30.0 Encounters ACCT No. Visit Date/Time Discharge Status Pt. Type Provider Facility Loc./Unit Complaint [id number] 03/07/2014 08:59:00 03/07/2014 23:59: 59 CLS Outpatient RONNY CARREON APRN [id number] 12/07/2013 13:55:00 12/07/2013 23:59: 59 CLS Outpatient JUSTIN GOODWIN DO [id number] 11/17/2016 14:08:00 Document Registration [id number] 11/17/2016 14:08:00 Document Registration
[2019-08-19] MEDS ORDERED: ANTACID SUSP 30 ML UDC (MYLANTA) PO ONE (09:00)
[2019-08-19] MEDS ORDERED: LIDOCAINE 2% VISCOUS 15 ML UDC PO ONE (09:00)
[2019-08-19] MEDS ORDERED: ONDANSETRON 4 MG (ZOFRAN) ORAL DISSOLVE TAB SL ONE (09:00)
--- NOTE | 2019-08-19 09:46 | ED Abdominal Pain ---
General Chief Complaint: Abdominal/GI Problems Stated Complaint: ABD PAIN Nursing Triage Note: PT PRESENTS TO ED WITH COMPLAINTS OF MEDIAL ABDOMINAL PAIN THAT RADIATES TO HIS BACK AND IS WORSE AFTER EATING. PT REPORTS HE WAS SEEN IN [place] ED AT 1200 AM TODAY AND TOLD HIS GALLBLADDER WAS GIVING HIM ISSUES. PT REPORTS AROUND 0300 THIS AM THE PAIN WOKE HIM UP AGAIN. Sepsis Screen: No Definite Risk Source of Information: Patient Exam Limitations: No Limitations History of Present Illness Date Seen by Provider: August 19, 2019 Time Seen by Provider: 08:21 Initial Comments This 43-year-old gentleman presents to the emergency room with complaints of epigastric and right upper quadrant abdominal pain. He is actually seeing the emergency room in [place] last night for the same symptoms. He received a chest pain and abdominal pain workup. Workup was unremarkable. There was suspicion for gallbladder disease but gallbladder ultrasound is not available at [facility] on weekends. Patient had some improvement in pain after receiving Pepcid and Mylanta. However, pain intensified and he comes in with severe pain now. He reports drinking 6 beers on Tuesday before his pain started. He does not drink daily. Please note patient was registered under the wrong name when he was seen in [place]. He was registered under the name Ollie Cabrera rather than Ollie CabreraTrey. Medical records will need to link the charts. Allergies and Home Medications Allergies Coded Allergies: No Known Drug Allergies (Unverified , 04/13/13) Home Medications Azithromycin 250 Mg Tablet, 250 MG PO UD TAKE 2 TABLETS TODAY, THEN TAKE 1 TABLET DAILY FOR 4 MORE DAYS Prescribed by: FABY HALL on 03/15/18 1218 Cefprozil 500 Mg Tablet, 1 EACH PO BID Prescribed by: EVANGELINA ALMAGUER on 04/13/13 1201 Famotidine 20 Mg Tablet, 20 MG PO BID Prescribed by: RIMA BERNAL on 08/19/19 0947 Methylprednisolone 4 Mg Tab.ds.pk, 4 MG PO UD Prescribed by: FABY HALL on 03/15/18 1218 Omeprazole 20 Mg Tablet.dr, 20 MG PO BID Prescribed by: RIMA BERNAL on 08/19/19 0947 Oseltamivir Phosphate 75 Mg Cap, 75 MG PO BID Prescribed by: UZMA STRONG on 03/15/17 1704 Promethazine/Dextromethorphan 473 Ml Syrup, 5 ML PO Q4H PRN for COUGH Prescribed by: FABY HALL on 03/15/18 1218 Sucralfate 1 Gm Tablet, 1 GM PO QID Crush/dissolve and slurry with 5-10 ML water. Take 30 minutes before meals and bedtime. Prescribed by: RIMA BERNAL on 08/19/19 0976 Patient Home Medication List Home Medication List Reviewed: Yes Review of Systems Review of Systems Constitutional: no symptoms reported EENTM: No Symptoms Reported Respiratory: No Symptoms Reported Cardiovascular: No Symptoms Reported Gastrointestinal: See HPI Genitourinary: No Symptoms Reported Musculoskeletal: no symptoms reported Skin: no symptoms reported Psychiatric/Neurological: No Symptoms Reported Endocrine: No Symptoms Reported Hematologic/Lymphatic: No Symptoms Reported Past Cwrosuz-Vyvmbl-Zekjlq Hx Past Med/Social Hx: Reviewed Nursing Past Med/Soc Hx Patient Social History Alcohol Use: Occasionally Uses Alcohol Beverage of Choice: Beer Recreational Drug Use: No Smoking Status: Never a Smoker 2nd Hand Smoke Exposure: No Recent Foreign Travel: No Contact w/Someone Who Travel: No Recent Infectious Disease Expo: No Recent Hopitalizations: No Physical Abuse: No Sexual Abuse: No Mistreated: No Fear: No Past Medical History Surgeries: Yes (RIGHT ROTATOR CUFF) Respiratory: No Cardiac: No Neurological: No Genitourinary: No Gastrointestinal: No Musculoskeletal: No Endocrine: Yes Diabetes, Non-Insulin dep HEENT: No Cancer: No Psychosocial: No Integumentary: No Blood Disorders: No Family Medical History No Pertinent Family Hx Physical Exam Vital Signs Vital Signs - First Documented 08/19/19 08:43 Temp 36.1 Pulse 70 Resp 18 B/P (MAP) 150/96 (114) Pulse Ox 98 Capillary Refill : Less Than 3 Seconds Height/Weight/BMI Height: 5'6.00" Weight: 200lbs. oz. 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, no motor/sensory deficits, alert, normal mood/affect, oriented x 3 Skin: normal color, warm/dry Progress/Results/Core Measures Results/Orders My Orders Orders - RIMA SOLITARIO MD Lidocaine 2% Viscous 15 Ml (Xylocaine Vi (08/19/19 09:00) Ondansetron Oral Dissolve Tab (Zofran (08/19/19 09:00) Antacid Suspension (Mylanta Suspension (08/19/19 09:00) Medications Given in ED Current Medications Medications Dose Ordered Sig/Jonathan Route Start Time Stop Time Status Last Admin Dose Admin Al Hydrox/Mg Hydrox/Simethicone 30 ml ONCE ONCE PO 08/19/19 09:00 08/19/19 09:01 DC 08/19/19 08:56 30 ML Lidocaine HCl 15 ml ONCE ONCE PO 08/19/19 09:00 08/19/19 09:01 DC 08/19/19 08:56 15 ML Ondansetron HCl 4 mg ONCE ONCE SL 08/19/19 09:00 08/19/19 09:01 DC 08/19/19 08:56 4 MG Vital Signs/I&O 08/19/19 08/19/19 08:43 09:55 Temp 36.1 Pulse 70 95 Resp 18 18 B/P (MAP) 150/96 (114) 116/80 Pulse Ox 98 98 Blood Pressure Mean: 114 Progress Progress Note : Progress Note Patient received a GI cocktail with significant improvement in his pain. I suspect his symptoms are more related to gastritis, ulcer, etc. However, I did advise he follow-up with [facility] and pursue a gallbladder ultrasound due to the location of his pain. See discharge instructions. Departure Impression Primary Impression: Epigastric pain Disposition: HOME, SELF-CARE Condition: Improved Departure-Patient Inst. Decision time for Depature: 09:41 Referrals: NO,LOCAL PHYSICIAN (PCP/Family) Primary Care Physician Patient Instructions: Acute Abdomen (Belly Pain), Adult (DC), Gastritis Add. Discharge Instructions: Causes of your pain may be related to inflammation of the stomach and/or esophagus, gallbladder disease, ulcers, etc. Please follow-up at [facility] as soon as possible. Discuss obtaining a gallbladder ultrasound at that follow-up appointment to rule out gallbladder disease. Avoid the following: Eating large meals, eating close to bedtime, caffeine, carbonation, alcohol, tobacco, chocolate, citrus fruits and juices, tomato products, mints, spicy foods, fatty or greasy foods, NSAID medications such as ibuprofen or naproxen, or anything else you know irritates your stomach. Aggressively treat with antiacid therapy including the following: Omeprazole 20 mg twice daily, can also be purchased [id number] Pepcid (or generic famotidine) 20 mg twice daily, can also be purchased [id number] Carafate (sucralfate), prescription This therapy should gradually improve your pain over a period 1 to 2 weeks. If you do not have resolution of pain by then, follow-up with your primary care provider for further workup which might include endoscopy. Please return to the emergency room if you have worsening symptoms or develop new symptoms despite following these recommendations. All discharge instructions reviewed with patient and/or family. Voiced understanding. Scripts Omeprazole (Omeprazole) 20 Mg Tablet.dr 20 MG PO BID, #60 TAB Prov: RIMA SOLITARIO MD 08/19/19 Famotidine (Pepcid) 20 Mg Tablet 20 MG PO BID, #60 TAB Prov: RIMA SOLITARIO MD 08/19/19 Sucralfate (Carafate) 1 Gm Tablet 1 GM PO QID, #120 TAB Crush/dissolve and slurry with 5-10 ML water. Take 30 minutes before meals and bedtime. Prov: RIMA SOLITARIO MD 08/19/19 Copy Copies To 1: JUSTIN GOODWIN JOSHUA T MD August 19, 2019 09:46
[2019-08-19] MEDS ORDERED: OMEP20TA7 PO (09:47)
[2019-08-19] MEDS ORDERED: FAMO-119 PO (09:47)
[2019-08-19] MEDS ORDERED: SUCR1TAB36 PO (09:47)
[2019-08-19 09:55] VITALS: BP 116/80
== END 2019-08-19 09:55 | disposition home or self-care (01) ==
LOC: EDUNIT# 08:15 → ER 08:16
DX: R10.13 Epigastric pain (principal)
CPT/HCPCS: 99283

== ENCOUNTER 2020-03-21 11:22 | Emergency (ER) | payer MEDICAID ==
[~2020-03-21] VITALS: Ht 165 cm; Wt 90.7 kg
[~2020-03-21 11:22] MED LIST changes: +FAMO-119 PO; +OMEP20TA7 PO; +SUCR1TAB36 PO
[2020-03-21 11:52] VITALS: BP 147/109
--- NOTE | 2020-03-21 13:14 | ED Cough/URI ---
General Chief Complaint: Cough/Cold/Flu Symptoms Stated Complaint: FEVER Nursing Triage Note: PT PRESENTS TO ED VIA POV FROM HOME WITH COMPLAINTS OF STARTING TO FEEL ILL ON 03/15. REPORTS EVERYONE IN HIS HOUSEHOLD ALSO BECAME ILL BUT THEY ALL SEEMED TO RECOVER BUT HE STILL FEELS ILL. PT REPORTS FEVERS, CHILLS, SINUS PRESSURE, AND OCCASIONAL COUGH. Sepsis Screen: No Definite Risk Source: patient Exam Limitations: no limitations History of Present Illness Date Seen by Provider: Mar 21, 2020 Time Seen by Provider: 12:30 Initial Comments Patient is a 44-year-old male who presents to the emergency room today with a chief complaint of generalized not feeling well. Patient states that he started to feel sick the day after Richard. He states he has increased sinus pain and pressure and nasal congestion. He has fevers and chills and occasional dry cough. Patient denies any nausea vomiting or diarrhea. Denies earache, sore throat. Patient denies any symptoms. Patient states everybody in his family also came down with the same illness and he felt like it was just "the flu". Patient states the flu always makes him feel like this. All other review of systems reviewed and negative except as stated above. Timing/Duration: week, getting worse Severity/Quality: dry cough (Occasionally productive) Associated Symptoms: cough, fever/chills, headache, sinus infection (Yellowish- green sputum production) Allergies and Home Medications Allergies Coded Allergies: No Known Drug Allergies (Unverified , 04/13/13) Home Medications Azithromycin 250 Mg Tablet, 250 MG PO UD TAKE 2 TABLETS TODAY, THEN TAKE 1 TABLET DAILY FOR 4 MORE DAYS Prescribed by: FABY HALL on 03/15/18 1218 Cefprozil 500 Mg Tablet, 1 EACH PO BID Prescribed by: EVANGELINA ALMAGUER on 04/13/13 1201 Famotidine 20 Mg Tablet, 20 MG PO BID Prescribed by: RIMA BERNAL on 08/19/19 0947 Methylprednisolone 4 Mg Tab.ds.pk, 4 MG PO UD Prescribed by: FABY HALL on 03/15/18 1218 Omeprazole 20 Mg Tablet.dr, 20 MG PO BID Prescribed by: RIMA BERNAL on 08/19/19 0947 Oseltamivir Phosphate 75 Mg Cap, 75 MG PO BID Prescribed by: UZMA STRONG on 03/15/17 1704 Promethazine/Dextromethorphan 473 Ml Syrup, 5 ML PO Q4H PRN for COUGH Prescribed by: FABY HALL on 03/15/18 1218 Sucralfate 1 Gm Tablet, 1 GM PO QID Crush/dissolve and slurry with 5-10 ML water. Take 30 minutes before meals and bedtime. Prescribed by: RIMA BERNAL on 08/19/19 0920 Patient Home Medication List Home Medication List Reviewed: Yes Review of Systems Review of Systems Constitutional: see HPI Respiratory: cough Cardiovascular: no symptoms reported Gastrointestinal: no symptoms reported Genitourinary: no symptoms reported Musculoskeletal: other (Body aches) Skin: no symptoms reported All Other Systems Reviewed Negative Unless Noted: Yes Past Qexywcq-Ughvtq-Ssthfk Hx Patient Social History Alcohol Use: Denies Use Number of Drinks Today: AA Alcohol Beverage of Choice: Beer Recreational Drug Use: No Smoking Status: Never a Smoker 2nd Hand Smoke Exposure: No Recent Foreign Travel: No Contact w/Someone Who Travel: No Recent Infectious Disease Expo: No Recent Hopitalizations: No Physical Abuse: No Sexual Abuse: No Mistreated: No Fear: No Seasonal Allergies Seasonal Allergies: No Past Medical History Surgeries: Yes (RIGHT ROTATOR CUFF, r knee, l hand carpal tunnel) Orthopedic Respiratory: No Cardiac: No Neurological: No Genitourinary: No Gastrointestinal: No Musculoskeletal: No Endocrine: Yes Diabetes, Non-Insulin dep HEENT: No Cancer: No Psychosocial: No Integumentary: No Blood Disorders: No Family Medical History No Pertinent Family Hx Physical Exam Vital Signs - First Documented 03/21/20 11:52 Temp 37.7 Pulse 79 Resp 18 B/P (MAP) 147/109 (122) Pulse Ox 98 O2 Delivery Room Air Capillary Refill : Less Than 3 Seconds Height: 5'6.00" Weight: 200lbs. oz. 90.907882pp; 33.00 BMI Method:Stated General Appearance: WD/WN, no apparent distress Eyes: Bilateral Eye Normal Inspection, Bilateral Eye PERRL, Bilateral Eye EOMI HEENT: normal ENT inspection, TMs normal, pharynx normal Neck: full range of motion, supple, normal inspection Respiratory: lungs clear, normal breath sounds, no respiratory distress Cardiovascular: regular rate, rhythm Gastrointestinal: non tender, soft Extremities: non-tender, normal inspection, no pedal edema Neurologic/Psychiatric: alert, normal mood/affect, oriented x 3 Skin: normal color, warm/dry Progress/Results/Core Measures Suspected Sepsis Recent Fever Within 48 Hours: Yes Infection Criteria Present: Suspected New Infection New/Unexplained Altered Menta: No Sepsis Screen: No Definite Risk SIRS Temperature: Pulse: 79 Respiratory Rate: 18 Blood Pressure 147 /109 Mean: 122 Results/Orders Lab Results Laboratory Tests Test 03/21/20 11:49 Range/Units Coronavirus 2019 ([facility]) Positive H Negative Micro Results Microbiology 03/21/20 Influenza Types A,B Antigen ([facility]) - Final, Complete My Orders Orders - PATRICIA GALLAGHER MD Influenza A And B Antigens (03/21/20 12:07) Covid 19 Inhouse Test (03/21/20 12:07) Vital Signs/I&O 03/21/20 03/21/20 11:52 11:52 Temp 37.7 Pulse 79 Resp 18 B/P (MAP) 147/109 (122) Pulse Ox 98 O2 Delivery Room Air Capillary Refill : Less Than 3 Seconds Blood Pressure Mean: 122 Progress Note : Time: 13:12 Progress Note Patient is noted to be Covid positive, influenza negative. Discussed plan of care with the patient. Recommended supportive care with Tylenol, ibuprofen, increase fluid intake and Mucinex for sinus congestion. Patient verbalizes understanding all questions are sought and answered and he is stable for discharge. Departure Impression Primary Impression: Coronavirus infection Disposition: 01 HOME, SELF-CARE Condition: Stable Departure-Patient Inst. Decision time for Depature: 13:13 Referrals: [facility] [place] [facility] [place] NO,LOCAL PHYSICIAN (PCP) Primary Care Physician Patient Instructions: Coronavirus Disease 2019 (COVID-19) (DC) Add. Discharge Instructions: Drink lots of fluids to stay well-hydrated. Alternate Tylenol and ibuprofen as needed for body aches and pains. Take [id number] Mucinex DM for cough and sinus congestion. Come back to the emergency department for any worsening symptoms with shortness of breath, persistent cough or other emergent concerning symptoms. PATRICIA GALLAGHER MD Mar 21, 2020 13:14
== END 2020-03-21 13:18 | disposition home or self-care (01) ==
LOC: EDUNIT# 11:22 → ER 11:27
DX: U07.1 COVID-19 (principal); Z79.52 Long term (current) use of systemic steroids
CPT/HCPCS: 87804; 99282; U0002; 87635

== ENCOUNTER 2021-07-06 21:27 | Emergency (ER) | payer MEDICAID ==
[~2021-07-06] VITALS: Ht 165 cm; Wt 98.0 kg
--- NOTE | 2021-07-06 21:32 | ED Chest Pain ---
General Stated Complaint: CP History of Present Illness Date Seen by Provider: Jul 06, 2021 Time Seen by Provider: 21:32 Initial Comments 45-year-old male presents with epigastric pain that radiates to his back. Patient reports that it started couple hours ago. Patient denies any pain up in his chest. He denies any shortness of breath, fever, chills, cough. Patient reports that he got worse after he ate. Allergies and Home Medications Allergies Coded Allergies: No Known Drug Allergies (Unverified , 04/13/13) Patient Home Medication List Home Medication List Reviewed: Yes Azithromycin (Zithromax) 250 Mg Tablet, 250 MG PO UD Prescribed by: FABY HALL on 03/15/18 1218 Cefprozil (Cefzil) 500 Mg Tablet, 1 EACH PO BID Prescribed by: EVANGELINA ALMAGUER on 04/13/13 1201 Famotidine (Pepcid) 20 Mg Tablet, 20 MG PO BID Prescribed by: RIMA BERNAL on 08/19/19 0947 Methylprednisolone (Medrol) 4 Mg Tab.ds.pk, 4 MG PO UD Prescribed by: FABY HALL on 03/15/18 1218 Omeprazole (Omeprazole) 20 Mg Tablet.dr, 20 MG PO BID Prescribed by: RIMA BERNAL on 08/19/19 0947 Oseltamivir Phosphate (Tamiflu) 75 Mg Cap, 75 MG PO BID Prescribed by: UZMA STRONG on 03/15/17 1704 Promethazine/Dextromethorphan (Promethazine-Dm Syrup) 473 Ml Syrup, 5 ML PO Q4H PRN for COUGH Prescribed by: FABY HALL on 03/15/18 1218 Sucralfate (Carafate) 1 Gm Tablet, 1 GM PO QID Prescribed by: RIMA BERNAL on 08/19/19 0947 Review of Systems Review of Systems Constitutional: No chills, No fever Respiratory: No Symptoms Reported Cardiovascular: No Symptoms Reported Gastrointestinal: See HPI, Abdominal Pain Musculoskeletal: back pain Skin: no symptoms reported Psychiatric/Neurological: No Symptoms Reported Endocrine: No Symptoms Reported Hematologic/Lymphatic: No Symptoms Reported Past Jbasubp-Wsmjkx-Vxsgxr Hx Seasonal Allergies Seasonal Allergies: No Past Medical History Surgeries: Yes (RIGHT ROTATOR CUFF, r knee, l hand carpal tunnel) Orthopedic Respiratory: No Cardiac: No Neurological: No Genitourinary: No Gastrointestinal: No Musculoskeletal: No Endocrine: Yes Diabetes, Non-Insulin dep HEENT: No Cancer: No Psychosocial: No Integumentary: No Blood Disorders: No Family Medical History No Pertinent Family Hx Physical Exam Vital Signs Vital Signs - First Documented 07/06/21 21:30 Temp 36.8 Pulse 73 Resp 18 B/P (MAP) 137/80 (99) Pulse Ox 96 O2 Delivery Room Air Capillary Refill : Height, Weight, BMI Height: 5'6.00" Weight: 200lbs. oz. 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 Skin: Normal Color, Warm/Dry Progress/Results/Core Measures Results/Orders Lab Results Laboratory Tests Test 07/06/21 21:45 Range/Units White Blood Count 5.7 4.3-11.0 10^3/uL Red Blood Count 4.49 4.30-5.52 10^6/uL Hemoglobin 13.4 13.3-17.7 g/dL Hematocrit 38 L 40-54 % Mean Corpuscular Volume 85 80-99 fL Mean Corpuscular Hemoglobin 30 25-34 pg Mean Corpuscular Hemoglobin Concent 35 32-36 g/dL Red Cell Distribution Width 12.7 10.0-14.5 % Platelet Count 224 130-400 10^3/uL Mean Platelet Volume 9.5 9.0-12.2 fL Immature Granulocyte % (Auto) 0 % Neutrophils (%) (Auto) 34 L 42-75 % Lymphocytes (%) (Auto) 52 H 12-44 % Monocytes (%) (Auto) 10 0-12 % Eosinophils (%) (Auto) 3 0-10 % Basophils (%) (Auto) 1 0-10 % Neutrophils # (Auto) 1.9 1.8-7.8 10^3/uL Lymphocytes # (Auto) 3.0 1.0-4.0 10^3/uL Monocytes # (Auto) 0.6 0.0-1.0 10^3/uL Eosinophils # (Auto) 0.2 0.0-0.3 10^3/uL Basophils # (Auto) 0.0 0.0-0.1 10^3/uL Immature Granulocyte # (Auto) 0.0 0.0-0.1 10^3/uL Sodium Level 139 135-145 MMOL/L Potassium Level 4.0 3.6-5.0 MMOL/L Chloride Level 101 98-107 MMOL/L Carbon Dioxide Level 25 21-32 MMOL/L Anion Gap 13 5-14 MMOL/L Blood Urea Nitrogen 10 7-18 MG/DL Creatinine 0.99 0.60-1.30 MG/DL Estimat Glomerular Filtration Rate 97 BUN/Creatinine Ratio 10 Glucose Level 143 H 70-105 MG/DL Calcium Level 9.5 8.5-10.1 MG/DL Corrected Calcium 8.5-10.1 MG/DL Total Bilirubin 0.2 0.1-1.0 MG/DL Aspartate Amino Transf (AST/SGOT) 49 H 5-34 U/L Alanine Aminotransferase (ALT/SGPT) 53 0-55 U/L Alkaline Phosphatase 100 40-136 U/L Troponin I < 0.30 <0.30 NG/ML C-Reactive Protein < 0.30 <0.50 MG/DL Total Protein 7.4 6.4-8.2 GM/DL Albumin 4.6 H 3.2-4.5 GM/DL Lipase 51 8-78 U/L My Orders Orders - SUBRAMANIAN,CHRIS L DO Cbc With Automated Diff (07/06/21 21:36) Comprehensive Metabolic Panel (07/06/21 21:36) Lipase (07/06/21 21:36) Ua Culture If Indicated (07/06/21 21:36) Crp Fs (07/06/21 21:36) Troponin I Fs (07/06/21 21:36) Ondansetron Injection (Zofran Injectio (07/06/21 21:45) Ns Iv 1000 Ml (Sodium Chloride 0.9%) (07/06/21 21:36) Famotidine Injection (Pepcid Injection) (07/06/21 21:36) Acute Abd Series (07/06/21 21:36) Ekg Tracing (07/06/21 21:38) Monitor-Rhythm Ecg Trace Only (07/06/21 21:38) Medications Given in ED Current Medications Medications Dose Ordered Sig/Jonathan Route Start Time Stop Time Status Last Admin Dose Admin Ondansetron HCl 4 mg ONCE ONCE IVP 07/06/21 21:45 07/06/21 21:46 DC 07/06/21 21:48 4 MG Vital Signs/I&O 07/06/21 21:30 Temp 36.8 Pulse 73 Resp 18 B/P (MAP) 137/80 (99) Pulse Ox 96 O2 Delivery Room Air Progress Progress Note : Progress Note Patient symptoms completely resolved with Pepcid and Zofran. Patient symptoms are much more epigastric GERD versus chest pain. I encouraged patient to add Pepcid twice daily for approximately 10 days and follow-up with her primary care provider as needed. Patient stable and discharged home Initial ECG Impression Date: Jul 06, 2021 Initial ECG Impression Time: 21:33 Initial ECG Rate: 62 Initial ECG Rhythm: Normal Sinus Initial ECG Intervals: Normal Initial ECG Impression: Normal Departure Impression Primary Impression: GERD (gastroesophageal reflux disease) Qualified Codes: K21.9 - Gastro-esophageal reflux disease without esophagitis Disposition: HOME, SELF-CARE Condition: Stable Departure-Patient Inst. Referrals: NO,LOCAL PHYSICIAN (PCP/Family) Primary Care Physician Patient Instructions: Acid Reflux and Gastroesophageal Reflux Disease in Adults Add. Discharge Instructions: Pepcid [id number] take as directed on package for at least the next 10 to 14 days Then as needed. Follow-up with your primary care provider if symptoms or not improving or return to the ER as needed CHRIS SUBRAMANIAN DO Jul 06, 2021 21:32
[2021-07-06] MEDS ORDERED: NS IV 1000 ML 1,000 ML IV STA (21:36)
[2021-07-06] MEDS ORDERED: FAMOTIDINE 20MG/2ML IV (PEPCID) IV STA (21:36)
[2021-07-06] MEDS ORDERED: ONDANSETRON 4 MG/2 ML (SDV) Z0FRAN IVP ONE (21:45)
[2021-07-06 22:00] LABS: BASOPHILS % (AUTO) 1 % (0-10); EOSINOPHILS # (AUTO) 0.2 10^3/uL (0.0-0.3); EOSINOPHILS % (AUTO) 3 % (0-10); HEMATOCRIT 38 % (40-54); HEMOGLOBIN 13.4 g/dL (13.3-17.7); LYMPHOCYTES % (AUTO) 52 % (12-44); MEAN CORPUSCULAR HEMOGLOBIN 30 pg (25-34); MEAN CORPUSCULAR HGB CONC 35 g/dL (32-36); MEAN CORPUSCULAR VOLUME 85 fL (80-99); MEAN PLATELET VOLUME 9.5 fL (9.0-12.2); MONOCYTES # (AUTO) 0.6 10^3/uL (0.0-1.0); MONOCYTES % (AUTO) 10 % (0-12); NEUTROPHILS # (AUTO) 1.9 10^3/uL (1.8-7.8); NEUTROPHILS % (AUTO) 34 % (42-75); PLATELET COUNT 224 10^3/uL (130-400); WHITE BLOOD COUNT 5.7 10^3/uL (4.3-11.0)
--- NOTE | 2021-07-06 22:16 | Diagnostic Imaging Report ---
INDICATION: Epigastric pain FINDINGS: The heart size is normal. Lungs are clear. The bowel gas pattern is nonspecific. IMPRESSION: No acute cardiopulmonary abnormality. Nonspecific bowel gas pattern. Dictated by: Dictated on workstation # [id number]
[2021-07-06 22:24] LABS: ALKALINE PHOSPHATASE 100 U/L (40-136); BILIRUBIN,TOTAL 0.2 MG/DL (0.1-1.0); BUN/CREATININE RATIO 10; CALCIUM 9.5 MG/DL (8.5-10.1); CARBON DIOXIDE 25 MMOL/L (21-32); CHLORIDE 101 MMOL/L (98-107); CREATININE SERUM 0.99 MG/DL (0.60-1.30); GFR ESTIMATED 97; GLUCOSE 143 MG/DL (70-105); SODIUM 139 MMOL/L (135-145)
[2021-07-06 22:25] LABS: ALANINE AMINOTRANSFERASE 53 U/L (0-55); ALBUMIN 4.6 GM/DL (3.2-4.5); LIPASE 51 U/L (8-78); TOTAL PROTEIN 7.4 GM/DL (6.4-8.2)
[2021-07-06 22:45] VITALS: BP 135/80
== END 2021-07-06 22:45 | disposition home or self-care (01) ==
LOC: EDUNIT# 21:27 → ER FS 21:28
DX: K21.9 Gastro-esophageal reflux disease without esophagitis (principal); E11.9 Type 2 diabetes mellitus without complications
CPT/HCPCS: 36415; 74022; 80053; 83690; 84484; 85025; 86141; 93005